=== PATIENT | male | born 1940 | race African-American/Black ===

== ENCOUNTER 2016-12-08 15:56 | Inpatient (IN) ==
[2016-12-08] MEDS ORDERED: SODIUM CHLORIDE 0.9% 500 ML IV STA (16:45)
--- NOTE | 2016-12-08 16:53 | Emergency Department Note ---
Linda Marshall Kasabria, am scribing for, and in the presence of, Sal Talbot MD 16:51. Antione Marshall Charles R, MD, personally performed the services described in this documentation, ascribed by Li Mckeon in my presence, and it is both accurate and complete [id number] . Arrival - Arrival Chief Complaint: Shortness of Breath ED Nursing Triage Note: c/o cough, sob when walking and abnormal gait for a few days. pt is pale Mode of Arrival: Stretcher Limitations: No Limitations Source: Patient Time Seen by Provider: 12/08/16 16:14 - History of Present Illness HPI Narrative: This is a 76 y/o black male presenting to the ED with c/o SOB that is now resolved. He states earlier today he could not walk. He denies MARTINEZ, vision change , chest pain, nausea, vomiting, diarrhea, abdominal pain, back pain, and dysuria. He states he has had melena stools. His PMHx is consistent with MS with stent placement and cerebrovasular accident. 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 Pt is a former smoker. Consistency: constant Severity: moderate Allergies/Adverse Reactions: Allergies Allergy/AdvReac Type Severity Reaction Status Date / Time No Known Allergies Allergy Unverified 12/30/14 16:27 Home Medications: Home Medications Medication Instructions Recorded Confirmed Type Atorvastatin [Lipitor] 20 mg PO BEDTIME #30 tablet 12/30/14 Rx Atorvastatin [Lipitor] 20 mg PO DAILY 12/30/14 12/30/14 History Clopidogrel [Plavix] 75 mg PO DAILY 12/30/14 12/30/14 History Clopidogrel [Plavix] 75 mg PO DAILY #30 tablet 12/30/14 Rx Review of System - Review of System 12 point system: reviewed and no additional remarkable complaints except as stated - Review of System Constitutional: Absent: chills, fever, weakness Eyes: Absent: vision change Head/Ears/Nose/Throat: Absent: nasal drainage Respiratory: Absent: cough, wheezing Cardiovascular: Present: dyspnea on exertion. Absent: chest pain Gastrointestinal: Present: melena. Absent: abdominal pain, nausea, vomiting, diarrhea Genitourinary male: Absent: dysuria Musculoskeletal: Absent: arm pain, back pain, leg pain, neck pain Skin: Absent: rash Neurological: Absent: headache, weakness, numbness, confusion, vertigo Psychiatric: Absent: anxiety Endocrine: Absent: fatigue Hematological/Lymphatic: Absent: easy bleeding Allergic/Immunologic: Absent: facial swelling Medical,Surgical,& Family Hx - Medical History Cardio: History of: MS (2004) Neurology: History of: Cerebrovascular Accident - Surgical History Cardiac Surgeries: Sugical HX of: Cardiac Catheterization (stent 2004) - Social History Smoking Status: Smoker, status unknown Frequency of Alcohol Use: None Type of Drug Use: None Exam Vital Signs: Vital Signs Temperature 97.0 F L 12/08/16 16:02 Pulse Rate 89 12/08/16 17:35 Respiratory Rate 14 12/08/16 17:35 Blood Pressure 115/80 12/08/16 17:35 O2 Sat by Pulse Oximetry 98 12/08/16 17:35 - General General appearance: alert, in no apparent distress - Head Head exam: Present: atraumatic, normocephalic, normal inspection - Eye Eye exam: Present: PERRL, EOMI. Absent: normal appearance (pale sclera ) - ENT ENT exam: Present: normal exam, normal oropharynx, mucous membranes moist, TM's normal bilaterally, normal external ear exam - Neck Neck exam: Present: normal inspection, full ROM, trachea midline. Absent: tenderness - Chest Chest inspection: Present: normal inspection, symmetric chest wall rise. Absent : tenderness - Respiratory Respiratory exam: Present: rhonchi (bilateral ). Absent: normal lung sounds bilaterally - Cardiovascular Cardiovascular exam: Present: normal rhythm, tachycardia, normal heart sounds. Absent: regular rate - Abdominal Exam Abdominal exam: Present: soft, normal bowel sounds. Absent: distention, tenderness - Rectal Exam Rectal exam: Present: heme (+) stool. Absent: normal inspection - Extremities Exam Extremities exam: Present: normal inspection, full ROM, normal capillary refill. Absent: tenderness, pedal edema, calf tenderness - Back Exam Back exam: Present: normal inspection, full ROM. Absent: tenderness - Neurological Exam Neurological exam: Present: alert, oriented X3, CN II-XII intact, normal gait, reflexes normal - Psychiatric Psychiatric exam: Present: normal affect, normal mood - Skin Skin exam: Present: warm, dry, intact, normal color, other (clubbing to nail bilaterally with pale nailbeds ). Absent: diaphoresis Course - Consultations Consultation #1: Hospitalist will admit patient Time: 17:49 Results - Labs CBC & BMP: 12/08/16 17:02 12/08/16 17:02 Lab Results: I have reviewed the patients labs Critical Care Time Critical Care Time: Yes Total Critical Care Time: 60 Disposition Clinical Impression: COPD (chronic obstructive pulmonary disease), Acute blood loss anemia, Lower GI bleed, Syncope and collapse, Exertional dyspnea Case discussed with: patient, patient's family Disposition: Still a Patient Condition: Guarded Time of Disposition: 17:50
--- NOTE | 2016-12-08 17:19 | EKG Report ---
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
[2016-12-08 17:28] LABS: Eosinophils # 0.1 10*3/uL (0.0-0.87); Eosinophils % 0.5 % (0.00-10.9); Hematocrit 18.4 VOL% (42.0-52.0); Immature Granulocytes % 0.5 %; Immature Granulocytes Absolute 0.05 #; Lymphocytes # 1.2 10*3/uL (1.4-4.0); Mean Corpuscular HGB Conc 27.7 GM/DL (32-36); Mean Corpuscular Hemoglobin 17 PG (27-34); Mean Corpuscular Volume 59.4 FL (87-102); Mean Platelet Volume 10.7 FL (9.6-12.0); Monocytes # 0.7 10*3/uL (0.11-0.8); Monocytes % 6.1 % (1.7-12.7); Neutrophils % 81.9 % (38.7-73.9); Platelet Count 257 T/CUMM (130-400); Red Cell Distribution Width 22.2 % (9.3-17.3)
[2016-12-08 17:32] LABS: Hemoglobin 5.1 GM/DL (14.0-18.0)
--- NOTE | 2016-12-08 17:35 | XRay Report ---
XR chest 1V portable Indication: Shortness of breath Comparison: 30 December 2014 Findings: The heart and mediastinum are normal in size and configuration. The pulmonary vascularity is normal in caliber. Lung volumes are increased with prominent bronchial markings. No lung infiltrates, effusions, pneumothorax or other abnormality is demonstrated. Impression: Chronic lung changes. No acute process or significant change. PROCEDURE INTERPRETED AT [facility] DEPARTMENT OF RADIOLOGY Final Report Signed by: Dr. Jaime Singh
[2016-12-08 17:41] LABS: INR 1.3; PT Patient Result 13.9 SECS
[2016-12-08 17:47] LABS: Apearance,Urine CLEAR (Clear); Bilirubin,Urine Negative (Negative); Blood, Urine Negative (Negative); Glucose,Urine (UA) Negative (Negative); Ketones,Urine Negative (Negative); Mucus,Urine Occasional /LPF (Occasional); Nitrite,Urine Negative (Negative); Protein,Urine Negative; RBC,Urine <1 /HPF (0-4); Urine Color Yellow (Yellow); Urine Specific Gravity 1.008 (1.001-1.035); Urine Urobilinogen < 2.0 EU/DL (0.2-1.0); WBC,Urine 1 /HPF (0-6)
[2016-12-08 17:51] LABS: Alanine Aminotransferase < 9 U/L (16-61); Albumin 2.9 G/DL (3.4-5.0); Alkaline Phosphatase 65 U/L (45-117); Aspartate Amino Transferase 11 U/L (0-37); Blood Urea Nitrogen 13 MG/DL (7-18); Calcium 8.3 MG/DL (8.5-10.1); Glucose 103 MG/DL (74-106); Magnesium 2.2 MG/DL (1.8-2.4); Osmolality,Calculated 272.8 MOS/KG (273-304); Potassium 3.5 MMOL/L (3.5-5.1); Sodium 137 MMOL/L (136-145)
[2016-12-08 17:52] LABS: Troponin I Only 0.099 NG/ML (0.00-0.045)
[2016-12-08 17:53] LABS: Barbiturates Screen,Urine Negative (Negative); Benzodiazepines Screen,Urine Negative (Negative); Cannabinoid Screen,Urine Negative (Negative); Opiate Screen,Urine Negative (Negative); Phencyclidine Screen,Urine Negative (Negative)
--- NOTE | 2016-12-08 18:44 | Hospitalist History & Physical ---
<Alfred Jang - Last Filed: 12/08/16 18:45> Assessment and Plan (1) Acute blood loss anemia Status: Acute Assessment and plan: H/H noted at 5.1/18.4; we will type and screen and transfuse. We willl recheck in AM. Current Visit: Yes (2) COPD (chronic obstructive pulmonary disease) Status: Acute Current Visit: Yes (3) Exertional dyspnea Status: Acute Assessment and plan: I suspect that this is related to his anemia; we will provide oxygen support and replace loss volume. Current Visit: Yes History of Present Illness History of present illness: This is very pleasant 76 year old male that presented to the ED this afternoon for the evaluation of shortness of breath. The patient has a medical history of hypertension, cerebral vascular accident, and myocardial infarction with stent placement. At the time of ED presentation, the patient reported that his shortness of breath had resolved; however he reported bloody stools today. At the time of ED presentation, labs were obtained. The patient was noted to be grossly anemic with a hemoglobin of 5.1 and hematocrit of 18.4. INR was noted at 1.3, calcium at 8.3, and troponin at 0.099. Chest radiograph was essentially unremarkable. After brief discussion with both Dr. Talbot and Dr. Templeton, the patient will be admitted to the hospitalist service to critical care. Home Medications Medication Instructions Recorded Confirmed Type Atorvastatin [Lipitor] 20 mg PO BEDTIME #30 tablet 12/30/14 12/08/16 Rx Clopidogrel [Plavix] 75 mg PO DAILY #30 tablet 12/30/14 12/08/16 Rx Albuterol Inhaler [Proventil 2 puff INH Q6H PRN 12/08/16 12/08/16 History Inhaler] Captopril 6.25 mg PO BID 12/08/16 12/08/16 History Carvedilol 0.5 tablet PO BID 12/08/16 12/08/16 History Allergies Allergy/AdvReac Type Severity Reaction Status Date / Time No Known Allergies Allergy Unverified 12/30/14 16:27 Medical,Surgical,& Family Hx - Medical History Cardio: History of: [place] (2004) Neurology: History of: Cerebrovascular Accident - Surgical History Cardiac Surgeries: Sugical HX of: Cardiac Catheterization (stent 2004) - Social History Smoking Status: Smoker, status unknown Frequency of Alcohol Use: None Type of Drug Use: None 12 point system: reviewed and no additional remarkable complaints except as stated Exam - Constitutional Vitals: Period Temp Pulse Resp BP Sys/Ibrahim Pulse Ox Last 24 Hr 97 F-97.0 F 88-91 14-23 115-126/62-86 98-100 General appearance: normal weight, no acute distress - Head Head exam: Present: normal inspection, normocephalic, atraumatic - Eye Eye exam: Present: EOMI, conjunctival injection Pupils: Present: LIBRADO, normal accommodation - ENT ENT exam: Present: normal exam, normal external ear exam, normal oropharynx - Neck Neck exam: Present: normal inspection. Absent: lymphadenopathy, meningismus, tenderness, thyromegaly - Respiratory Respiratory exam: Present: clear to auscultation bilaterally. Absent: rales, rhonchi, stridor, wheezes - Cardiovascular Cardiovascular exam: Present: bradycardia, regular rate and rhythm. Absent: carotid bruit, diastolic murmur, gallop, JVD, rubs, systolic murmur - GI/Abdominal GI/Abdominal exam: Present: normal bowel sounds, soft, other (melena ) - Extremities Exam Extremities exam: Present: normal inspection, normal capillary refill, full ROM , edema. Absent: calf tenderness - Back Exam Back exam: Present: normal inspection - Neurological Exam Neurological exam: Present: alert, oriented X3, CN II-XII intact - Psychiatric Psychiatric exam: Present: normal affect, normal mood - Skin Skin exam: Present: normal color, warm, dry Results - Labs CBC & BMP: 12/08/16 17:02 12/08/16 17:02 Lab Results: I have reviewed the past 24 hour labs <Amanda Danielson - Last Filed: 12/08/16 20:35> History of Present Illness History of present illness: Mr. Salomon is a 76 year old male with multiple medical issues who is on admission for symptomatic anemia.He denies any GI bleed or bleeding from any orifices. No known history of Colonoscopy or EGD in the past.His troponin was elevated and Hb was 5.1 Plan Liquid diet Transfuse with 2units of packed cells GI consult Cardiac enzymes Consider Cardiology consult PPI stool for occult blood Echo Exam - Constitutional Vitals: Period Temp Pulse Resp BP Sys/Ibrahim Pulse Ox Last 24 Hr 90 17 128/66 98 Results - Labs CBC & BMP: 12/08/16 17:02 12/08/16 17:02
[2016-12-08] MEDS ORDERED: SODIUM CHLORIDE 0.45% 1,000 ML IV SCH (20:55)
[2016-12-08] MEDS ORDERED: SODIUM CHLORIDE 0.9% 250 ML IV PRN (20:55)
[2016-12-08] MEDS: CARVEDILOL 6.25 MG TABLET PO SCH (21:35)
[2016-12-08] MEDS: ATORVASTATIN 20 MG TABLET PO SCH (21:35)
[2016-12-08 22:21] LABS: Ferritin 12.9 ng/ml (26-388)
[2016-12-08 22:28] LABS: % Iron Saturation 2.5 % (18-50); Iron 8 UG/DL (65-175); Iron Binding Capacity 325 UG/DL (250-450); Troponin I Only 0.069 NG/ML (0.00-0.045)
[2016-12-08] MEDS: ALBUTEROL 2.5 MG/3 ML NEB RESP TX PRN (23:11)
[2016-12-09] MEDS ORDERED: FUROSEMIDE 20 MG/2 ML VIAL IV ONE (03:52)
[2016-12-09 05:24] LABS: Apearance,Urine CLEAR (Clear); Bilirubin,Urine Negative (Negative); Blood, Urine Negative (Negative); Glucose,Urine (UA) Negative (Negative); Ketones,Urine Negative (Negative); Mucus,Urine Occasional /LPF (Occasional); Nitrite,Urine Negative (Negative); Protein,Urine Negative; RBC,Urine <1 /HPF (0-4); Squamous Epithelial Cell,Urine Occasional /HPF (0-10); Urine Color Yellow (Yellow); Urine Specific Gravity 1.021 (1.001-1.035); WBC,Urine 1 /HPF (0-6)
[2016-12-09 06:07] LABS: Basophils % 0.1 % (0.0-0.8); Eosinophils # 0.1 10*3/uL (0.0-0.87); Eosinophils % 0.5 % (0.00-10.9); Hematocrit 28.9 VOL% (42.0-52.0); Immature Granulocytes Absolute 0.15 #; Lymphocytes # 0.7 10*3/uL (1.4-4.0); Lymphocytes % 4.8 % (21.2-54.2); Mean Corpuscular HGB Conc 29.8 GM/DL (32-36); Mean Corpuscular Hemoglobin 20 PG (27-34); Mean Corpuscular Volume 66.3 FL (87-102); Monocytes # 0.5 10*3/uL (0.11-0.8); Neutrophils # 13.8 10*3/uL (1.4-7.4); Neutrophils % 90.6 % (38.7-73.9); Platelet Count 240 T/CUMM (130-400); Red Cell Distribution Width 26.7 % (9.3-17.3)
[2016-12-09 06:09] LABS: Red Blood Count 4.36 MC/CUMM (3.8-5.5); White Blood Count 15.2 T/CUMM (4-12)
[2016-12-09 06:10] LABS: Hemoglobin 8.6 GM/DL (14.0-18.0)
[2016-12-09 06:33] LABS: Hypochromasia 1+; Lymphocytes 2 % (20-55); Ovalocytes Slight; Platelet Estimate Adequate; Segmented Neutrophils 97 % (50-85); Total Cells Counted 100
[2016-12-09 06:34] LABS: Microcytosis Slight
[2016-12-09 06:38] LABS: Alanine Aminotransferase 17 U/L (16-61); Albumin 2.8 G/DL (3.4-5.0); Alkaline Phosphatase 81 U/L (45-117); Aspartate Amino Transferase 26 U/L (0-37); Blood Urea Nitrogen 12 MG/DL (7-18); Calcium 7.9 MG/DL (8.5-10.1); Cholesterol 140 MG/DL (50-200); Glucose 94 MG/DL (74-106); HDL Cholesterol 77 MG/DL (40-60); Osmolality,Calculated 272.8 MOS/KG (273-304); Risk Ratio 1.82; Sodium 137 MMOL/L (136-145); Total Protein 6.9 G/DL (6.4-8.3); Triglycerides 82 MG/DL (2-150); VLDL CHOLESTEROL 16.4 MG/DL
[2016-12-09 06:40] LABS: Troponin I Only 0.058 NG/ML (0.00-0.045)
[2016-12-09] MEDS: CARVEDILOL 6.25 MG TABLET PO SCH ×2 (08:03→21:16)
[2016-12-09] MEDS: ACETAMINOPHEN 325 MG TABLET PO PRN ×2 (08:03→16:36)
--- NOTE | 2016-12-09 08:26 | Hospitalist Progress Note ---
Assessment and Plan (1) Acute blood loss anemia Status: Acute Assessment and plan: Assumably lower GI bleed. Consult GI. Hemoglobin improved with transfusion of 2 units of packed red blood cells. The patient was admitted with symptomatic anemia with a hemoglobin of 5. Current Visit: Yes (2) COPD (chronic obstructive pulmonary disease) Status: Chronic Current Visit: Yes (3) Lower GI bleed Status: Acute Current Visit: Yes Hospitalist: Subjective Interval history: Patient seen and examined. He became more short of breath last night after receiving 2 units of packed red blood cells. He received 20 mg of IV Lasix and feels better now. O2 sats 99%. Case discussed with nursing staff. Labs reviewed. Exam - Constitutional Vitals: Period Temp Pulse Resp BP Sys/Ibrahim Pulse Ox Last 24 Hr 98.4 F-101.8 F 82-110 12-25 88-152/59-91 93-100 Exam: Constitutional System: No distress. No tremulousness. Thin and frail-appearing Head: Normocephalic, atraumatic. Ears, Nose and Throat System: No pain or tenderness. No epistaxis or discharge Eyes System: Pupils equal, round, and reactive. Extraocular muscles intact. Neck: Supple, without adenopathy, No jugular venous distention. No thyromegaly, neck mass, or prior surgery apparent. Respiratory System: Chest clear to auscultation. Cardiovascular System: Heart with regular rate and rhythm. No murmur. GI System: Abdomen soft, nontender. Normo active bowel sounds present. Musculoskeletal System: limbs with no pedal edema. Full distal pulses. Neurological System: No discernable sensory deficit. No aphasia Psychiatric System: Conversation is rational Results - Labs CBC & BMP: 12/09/16 05:39 12/09/16 05:39 Lab Results: I have reviewed the past 24 hour labs Quality Measures - VTE Contraindication to Pharmacological VTE Prophylaxis: High Risk of Bleeding
[2016-12-09] MEDS ORDERED: PANTOPRAZOLE 40 MG VIAL IV SCH (09:00)
--- NOTE | 2016-12-09 09:21 | Cardiology Consult Note ---
<Laura Waldrop - Last Filed: 12/09/16 09:04> Assessment and Plan - Time spent with patient Time spent with patient: Greater than 30 minutes (1) Acute blood loss anemia Status: Chronic Assessment and plan: See plan of care listed below. Current Visit: Yes (2) COPD (chronic obstructive pulmonary disease) Status: Chronic Assessment and plan: See plan of care listed below. Current Visit: Yes (3) Hypertension Status: Chronic Assessment and plan: See plan of care listed below. Current Visit: Yes (4) Hyperlipidemia Status: Chronic Assessment and plan: See plan of care listed below. Current Visit: Yes (5) Coronary artery disease Status: Chronic Assessment and plan: See plan of care listed below. Current Visit: Yes (6) Former smoker Status: Chronic Assessment and plan: See plan of care listed below. Current Visit: Yes (7) Ischemic cardiomyopathy Status: Chronic Assessment and plan: See plan of care listed below. Current Visit: Yes History of Present Illness - Data of Consult Patient: known to practice within the last 3 years Consult date: 12/09/16 Requesting Physician: Amanda Danielson - Consult Narrative Reason for consult: Elevated troponin, history of CAD History of present illness: Automobile Brake Bonder: Dr. Samano Mr. Salomon is a 76 year old male with known history of coronary artery disease , routinely followed by Dr. Samano. She presented to the emergency department yesterday evening with complaints of shortness of breath 3 weeks. His current receptor significant for known history of coronary artery disease, hypertension, hyperlipidemia, former smoker (reports that he quit in 2004), advanced age and sedentary lifestyle. Patient has a past medical history of CVA , myocardial infarction (status post stent to RCA in 2004, COPD and ischemic cardiomyopathy) echo in 2014 revealed ejection fraction of 40-50%). Patient underwent left heart catheterization per Dr. Samano in 2004. At that time he received stent to RCA. At that time, his overall ejection fraction was noted to be 45%. Patient last saw Dr. Samano in the cardiology clinic December 2015. He reports that he missed his appointment last week due to finances. Patient presented to [facility] yesterday evening with complaints of shortness of breath 3 weeks. He denies experiencing chest pain, heaviness or tightness. Denies fever, chills, cough, heart palpitations/racing , nausea, vomiting, and lower extremity swelling. Upon arrival to emergency department he was severely anemic with H&H of 5.1 and 18.4. Subsequently, he was transfused with 2 units of packed red blood cells. This morning, H&H is slightly better at 8.6 and 28.9. After receiving 2 units of packed red blood cells, he became increasingly short of breath. BNP was noted to be 455. After receiving Lasix IV his dyspnea resolved. Chest x-ray did not reveal any acute cardiopulmonary process. Patient denies having any bright red blood per rectum. GI has been consulted to evaluate patient's anemia this morning. Plavix was held at admission as the patient's coronary stent was placed well over one year ago. Troponin was noted to be mildly elevated at 0.099, 0.069 and 0.058. Patient has been without anginal symptoms. EKG is unchanged. I suspect that patient's rise in troponin is secondary to patient's severe anemia. GI workup is underway. Echocardiogram was ordered per hospital medicine, results reviewed reviewed. Assessment/plan: 1. ELEVATED TROPONIN -Patient has been without anginal symptoms. EKG is unchanged. I suspect that patient's mildly elevated troponin is secondary to his severe anemia. 2. CAD -This appears to be clinically stable at present. Patient is without anginal symptoms. Will continue patient's beta-ky and lipid-lowering agent. At this point, antiplatelet's have been discontinued due to patient's profound anemia. Will consider reinitiating aspirin at a later date, once his anemia improves. 3. ANEMIA -Plavix was held at admission as patient's coronary stent was placed well over one year ago. Patient was transfused with 2 units of packed red blood cells yesterday evening. H&H has improved, today 8.6 and 28.9. GI has been consulted to evaluate patient today. 4. ISCHEMIC CARDIOMYOPATHY -Patient's last echocardiogram, September 2014 reveals ejection fraction of 40-50%. Echocardiogram has been ordered per hospital medicine, results will be reviewed. Continue beta-ky. I will also add low -dose HYUN inhibitor, increase as blood pressure will tolerate. 5. HYPERTENSION -This is clinically stable. Low dose HYUN inhibitor has been initiated as patient has history of ischemic cardiomyopathy. Will increase as patient's blood pressure will tolerate. 6. HYPERLIPIDEMIA -Continue current plan of care with lipid lowering agent. Lipid panel has been reviewed, unremarkable. 7. COPD -Management per attending. 8. FORMER SMOKER - Patient reports that he quit smoking in 2004. -Further plan and addendum to follow per Dr. Kam. CC: Tracey Rosales MD - Home Medications and Allergies Home Medications: Home Medications Medication Instructions Recorded Confirmed Type Atorvastatin [Lipitor] 20 mg PO BEDTIME #30 tablet 12/30/14 12/08/16 Rx Clopidogrel [Plavix] 75 mg PO DAILY #30 tablet 12/30/14 12/08/16 Rx Albuterol Inhaler [Proventil 2 puff INH Q6H PRN 12/08/16 12/08/16 History Inhaler] Captopril 6.25 mg PO BID 12/08/16 12/08/16 History Carvedilol 0.5 tablet PO BID 12/08/16 12/08/16 History Allergies/Adverse Reactions: Allergies Allergy/AdvReac Type Severity Reaction Status Date / Time No Known Allergies Allergy Unverified 12/30/14 16:27 - Constitutional Constitutional: Present: malaise, weakness, weight loss. Absent: chills, fatigue, fever(s) - Cardiovascular Cardiovascular: Present: dyspnea, dyspnea on exertion, lightheadedness, orthopnea. Absent: chest pain at rest, chest pain with activity, claudication, diaphoresis, edema, radiating jaw, neck or arm pain, palpitations - Respiratory Respiratory: Absent: cough - Gastrointestinal Gastrointestinal: Present: abdominal pain, change in bowel habits, heartburn, melena. Absent: coffee ground emesis, hematemesis, hematochezia, nausea, vomiting - Neurological Neurological: Present: dizziness. Absent: abnormal speech, behavioral changes, syncope Medical,Surgical,& Family Hx - Medical History Cardio: History of: CAD, Hypertension, [place] (2004), Cardiovascular Problems ( Ischemic cardiomyopathy with ejection fraction 45-50%.) Neurology: History of: Cerebrovascular Accident Endocrine: History of: Dyslipidemia Respiratory: History of: COPD - Surgical History Cardiac Surgeries: Sugical HX of: Cardiac Catheterization (stent 2004) Abdominal Surgeries: Patient denies: Abdominal Surgery Reproductive Surgeries: Patient denies;: Genitourinary Surgery - Family History Family History: Reports;: Family Diabetes (mother) Denies;: Family Heart Disease - Social History Smoking Status: Former smoker Frequency of Alcohol Use: None Type of Drug Use: None Physical Examination Vital Signs Temp Pulse Resp BP Pulse Ox 97.0 F L 90 18 120/65 99 12/08/16 16:02 12/08/16 16:02 12/08/16 16:02 12/08/16 16:02 12/08/16 16:02 Other: General: Appears well with no apparent distress, thin and frail. Pleasant and cooperative. Appears comfortable. HEENT: PERRL, normocephalic, atraumatic. Mucous membranes moist. No jaundice noted. Conjunctiva moist and clear, sclerae anicteric Neck: No JVD/HJR, no thyromegaly or lymphadenopathy noted. Cardiac: Regular rate and rhythm. No murmur rub or gallop. Lungs: Clear to auscultation without accessory muscle use to assist the respiratory pattern. Requiring oxygen at 2 L via nasal cannula. Abdomen: Soft, bowel sounds normoactive. Nontender and nondistended. Extremities: No clubbing, cyanosis noted. No edema noted. Upper extremity pulses 2+. Lower extremity pulses 2+. Capillary refill less than 3 seconds. Skin: No unusual lesions or rashes. No skin breakdown appreciated. Neuro: Awake, alert and oriented 3. Moves all extremities well without hemiparesis or paralysis. No essential tremor is appreciated. Result/EKG - Labs CBC & BMP: 12/09/16 05:39 12/09/16 05:39 Lab Results: I have reviewed the past 24 hour labs Labs: Laboratory Results - last 24 hr 12/08/16 12/08/16 12/08/16 20:55 21:34 21:42 WBC RBC Hgb Hct MCV MCH MCHC RDW Plt Count Neut % (Auto) Lymph % (Auto) [place] % (Auto) Eos % (Auto) Baso % (Auto) Neut # (Auto) Lymph # (Auto) [place] # (Auto) Eos # (Auto) Baso # (Auto) Total Counted Immature Gran % Nucleated RBC % Immature Gran # Segmented Neutrophils Lymphocytes Monocytes Nucleated RBCs # Platelet Estimate Hypochromasia Microcytosis Ovalocytes Morphology Comment Sodium Potassium Chloride Carbon Dioxide Anion Gap BUN Creatinine GFR Calculation BUN/Creatinine Ratio Glucose Calculated Osmolality Calcium Iron 9 L TIBC % Saturation Ferritin 12.9 L Total Bilirubin AST ALT Alkaline Phosphatase Total Creatine Kinase CK-MB (CK-2) Troponin I Total Protein Albumin Globulin Albumin/Globulin Ratio Triglycerides Cholesterol LDL Cholesterol VLDL Cholesterol HDL Cholesterol Heart Disease Risk Ratio TSH 3rd Generation Urine Color Urine Appearance Urine pH Ur Specific [place] Urine Protein Urine Glucose (UA) Urine Ketones Urine Blood Urine Nitrate Urine Bilirubin Urine Urobilinogen Urine Leukocytes Urine RBC Urine WBC Ur Squamous Epith Cells Urine Mucus Ur Culture Indicated? Blood Type Cancelled AB POSITIVE Antibody Screen Cancelled Crossmatch See Detail Blood Bank Comment Cancelled 12/08/16 12/09/16 12/09/16 21:42 02:00 05:39 WBC 15.2 H D RBC 4.36 D Hgb 8.6 L D Hct 28.9 L MCV 66.3 L MCH 20 L MCHC 29.8 L RDW 26.7 H Plt Count 240 Neut % (Auto) 90.6 H Lymph % (Auto) 4.8 L [place] % (Auto) 3.0 Eos % (Auto) 0.5 Baso % (Auto) 0.1 Neut # (Auto) 13.8 H Lymph # (Auto) 0.7 L [place] # (Auto) 0.5 Eos # (Auto) 0.1 Baso # (Auto) 0.0 Total Counted 100 Immature Gran % 1.0 Nucleated RBC % 0.0 Immature Gran # 0.15 Segmented Neutrophils 97 H Lymphocytes 2 L Monocytes 1 L Nucleated RBCs # 0.00 Platelet Estimate Adequate Hypochromasia 1+ Microcytosis Slight Ovalocytes Slight Morphology Comment Sodium Potassium Chloride Carbon Dioxide Anion Gap BUN Creatinine GFR Calculation BUN/Creatinine Ratio Glucose Calculated Osmolality Calcium Iron 8 L TIBC 325 % Saturation 2.5 L Ferritin Total Bilirubin AST ALT Alkaline Phosphatase Total Creatine Kinase 148 CK-MB (CK-2) < 1.0 Troponin I 0.069 H D Total Protein Albumin Globulin Albumin/Globulin Ratio Triglycerides Cholesterol LDL Cholesterol VLDL Cholesterol HDL Cholesterol Heart Disease Risk Ratio TSH 3rd Generation 2.880 Urine Color Yellow Urine Appearance Clear Urine pH 5.0 Ur Specific [place] 1.021 Urine Protein Negative Urine Glucose (UA) Negative Urine Ketones Negative Urine Blood Negative Urine Nitrate Negative Urine Bilirubin Negative Urine Urobilinogen 4.0 H Urine Leukocytes Negative Urine RBC <1 Urine WBC 1 Ur Squamous Epith Cells Occasional Urine Mucus Occasional Ur Culture Indicated? Not indicated Blood Type Antibody Screen Crossmatch Blood Bank Comment 12/09/16 05:39 WBC RBC Hgb Hct MCV MCH MCHC RDW Plt Count Neut % (Auto) Lymph % (Auto) [place] % (Auto) Eos % (Auto) Baso % (Auto) Neut # (Auto) Lymph # (Auto) [place] # (Auto) Eos # (Auto) Baso # (Auto) Total Counted Immature Gran % Nucleated RBC % Immature Gran # Segmented Neutrophils Lymphocytes Monocytes Nucleated RBCs # Platelet Estimate Hypochromasia Microcytosis Ovalocytes Morphology Comment Sodium 137 Potassium 4.0 Chloride 104 Carbon Dioxide 22 Anion Gap 15.0 BUN 12 Creatinine 1.00 GFR Calculation 82 BUN/Creatinine Ratio 12.00 Glucose 94 Calculated Osmolality 272.8 L Calcium 7.9 L Iron TIBC % Saturation Ferritin Total Bilirubin 1.60 H AST 26 ALT 17 Alkaline Phosphatase 81 Total Creatine Kinase 199 D CK-MB (CK-2) < 1.0 Troponin I 0.058 H Total Protein 6.9 Albumin 2.8 L Globulin 4.1 H Albumin/Globulin Ratio 0.6 L Triglycerides 82 Cholesterol 140 LDL Cholesterol 60.0 VLDL Cholesterol 16.4 HDL Cholesterol 77 H Heart Disease Risk Ratio 1.82 TSH 3rd Generation Urine Color Urine Appearance Urine pH Ur Specific [place] Urine Protein Urine Glucose (UA) Urine Ketones Urine Blood Urine Nitrate Urine Bilirubin Urine Urobilinogen Urine Leukocytes Urine RBC Urine WBC Ur Squamous Epith Cells Urine Mucus Ur Culture Indicated? Blood Type Antibody Screen Crossmatch Blood Bank Comment Quality Measures - VTE Contraindication to Pharmacological VTE Prophylaxis: High Risk of Bleeding <Phil Kam - Last Filed: 12/09/16 10:35> History of Present Illness - Consult Narrative History of present illness: Mr. Salomon is a 76 year old male who presented with a marked anemia with severe iron deficiency which is improved to 28.9 posttransfusion. He appears stable and has had no significant cardiac complaints. He had been on Plavix and this has been discontinued and I think it safe to hold it at this point. His troponins are nondiagnostic and likely related to his anemia. CC: Tracey Rosales MD Physical Examination Vital Signs Temp Pulse Resp BP Pulse Ox 97.0 F L 90 18 120/65 99 12/08/16 16:02 12/08/16 16:02 12/08/16 16:02 12/08/16 16:02 12/08/16 16:02 Result/EKG - Labs CBC & BMP: 12/09/16 05:39 12/09/16 05:39 Labs: Laboratory Results - last 24 hr 12/08/16 12/08/16 12/08/16 20:55 21:34 21:42 WBC RBC Hgb Hct MCV MCH MCHC RDW Plt Count Neut % (Auto) Lymph % (Auto) [place] % (Auto) Eos % (Auto) Baso % (Auto) Neut # (Auto) Lymph # (Auto) [place] # (Auto) Eos # (Auto) Baso # (Auto) Total Counted Immature Gran % Nucleated RBC % Immature Gran # Segmented Neutrophils Lymphocytes Monocytes Nucleated RBCs # Platelet Estimate Hypochromasia Microcytosis Ovalocytes Morphology Comment Sodium Potassium Chloride Carbon Dioxide Anion Gap BUN Creatinine GFR Calculation BUN/Creatinine Ratio Glucose Calculated Osmolality Calcium Iron 9 L TIBC % Saturation Ferritin 12.9 L Total Bilirubin AST ALT Alkaline Phosphatase Total Creatine Kinase CK-MB (CK-2) Troponin I Total Protein Albumin Globulin Albumin/Globulin Ratio Triglycerides Cholesterol LDL Cholesterol VLDL Cholesterol HDL Cholesterol Heart Disease Risk Ratio TSH 3rd Generation Urine Color Urine Appearance Urine pH Ur Specific [place] Urine Protein Urine Glucose (UA) Urine Ketones Urine Blood Urine Nitrate Urine Bilirubin Urine Urobilinogen Urine Leukocytes Urine RBC Urine WBC Ur Squamous Epith Cells Urine Mucus Ur Culture Indicated? Blood Type Cancelled AB POSITIVE Antibody Screen Cancelled Crossmatch See Detail Blood Bank Comment Cancelled 12/08/16 12/09/16 12/09/16 21:42 02:00 05:39 WBC 15.2 H D RBC 4.36 D Hgb 8.6 L D Hct 28.9 L MCV 66.3 L MCH 20 L MCHC 29.8 L RDW 26.7 H Plt Count 240 Neut % (Auto) 90.6 H Lymph % (Auto) 4.8 L [place] % (Auto) 3.0 Eos % (Auto) 0.5 Baso % (Auto) 0.1 Neut # (Auto) 13.8 H Lymph # (Auto) 0.7 L [place] # (Auto) 0.5 Eos # (Auto) 0.1 Baso # (Auto) 0.0 Total Counted 100 Immature Gran % 1.0 Nucleated RBC % 0.0 Immature Gran # 0.15 Segmented Neutrophils 97 H Lymphocytes 2 L Monocytes 1 L Nucleated RBCs # 0.00 Platelet Estimate Adequate Hypochromasia 1+ Microcytosis Slight Ovalocytes Slight Morphology Comment Sodium Potassium Chloride Carbon Dioxide Anion Gap BUN Creatinine GFR Calculation BUN/Creatinine Ratio Glucose Calculated Osmolality Calcium Iron 8 L TIBC 325 % Saturation 2.5 L Ferritin Total Bilirubin AST ALT Alkaline Phosphatase Total Creatine Kinase 148 CK-MB (CK-2) < 1.0 Troponin I 0.069 H D Total Protein Albumin Globulin Albumin/Globulin Ratio Triglycerides Cholesterol LDL Cholesterol VLDL Cholesterol HDL Cholesterol Heart Disease Risk Ratio TSH 3rd Generation 2.880 Urine Color Yellow Urine Appearance Clear Urine pH 5.0 Ur Specific [place] 1.021 Urine Protein Negative Urine Glucose (UA) Negative Urine Ketones Negative Urine Blood Negative Urine Nitrate Negative Urine Bilirubin Negative Urine Urobilinogen 4.0 H Urine Leukocytes Negative Urine RBC <1 Urine WBC 1 Ur Squamous Epith Cells Occasional Urine Mucus Occasional Ur Culture Indicated? Not indicated Blood Type Antibody Screen [facility] Blood Bank Comment 12/09/16 05:39 WBC RBC Hgb Hct MCV MCH MCHC RDW Plt Count Neut % (Auto) Lymph % (Auto) [place] % (Auto) Eos % (Auto) Baso % (Auto) Neut # (Auto) Lymph # (Auto) [place] # (Auto) Eos # (Auto) Baso # (Auto) Total Counted Immature Gran % Nucleated RBC % Immature Gran # Segmented Neutrophils Lymphocytes Monocytes Nucleated RBCs # Platelet Estimate Hypochromasia Microcytosis Ovalocytes Morphology Comment Sodium 137 Potassium 4.0 Chloride 104 Carbon Dioxide 22 Anion Gap 15.0 BUN 12 Creatinine 1.00 GFR Calculation 82 BUN/Creatinine Ratio 12.00 Glucose 94 Calculated Osmolality 272.8 L Calcium 7.9 L Iron TIBC % Saturation Ferritin Total Bilirubin 1.60 H AST 26 ALT 17 Alkaline Phosphatase 81 Total Creatine Kinase 199 D CK-MB (CK-2) < 1.0 Troponin I 0.058 H Total Protein 6.9 Albumin 2.8 L Globulin 4.1 H Albumin/Globulin Ratio 0.6 L Triglycerides 82 Cholesterol 140 LDL Cholesterol 60.0 VLDL Cholesterol 16.4 HDL Cholesterol 77 H Heart Disease Risk Ratio 1.82 TSH 3rd Generation Urine Color Urine Appearance Urine pH Ur Specific [place] Urine Protein Urine Glucose (UA) Urine Ketones Urine Blood Urine Nitrate Urine Bilirubin Urine Urobilinogen Urine Leukocytes Urine RBC Urine WBC Ur Squamous Epith Cells Urine Mucus Ur Culture Indicated? Blood Type Antibody Screen Crossmatch Blood Bank Comment
[2016-12-09] MEDS: LISINOPRIL 2.5 MG TABLET PO SCH (09:27)
--- NOTE | 2016-12-09 11:37 | Gastrointestinal Consult Note ---
Assessment and Plan (1) Acute blood loss anemia Status: Chronic Assessment and plan: 12/09-Findings on admission of SOB and weakness with hgb 5.1, now 8.6 following 2 units PRBC. Last endoscopy in 2006. No GI complaints other than contradictory reports of melena/hematochezia on admission denied at this time by patient. Obtain stool studies and check serial HH. Plan for upper endoscopy when cleared from cardiac standpoint. Plan and addendum to follow by Dr Alejo. Current Visit: Yes History of Present Illness Chief complaint: Anemia History of present illness: Mr. Salomon is a 76 year old male who was admitted to the hospital with reports of SOB. Pt has a history of HTN, CVA, heart stents ([address] Samano) and [place]. He is a fair historian therefore information also obtained from chart review. Pt states that he had not felt well the last several days and was becoming more fatigued and short of breath. He was brought in via ambulance and on admission was found to have hemoglobin of 5.1. He states that he has no known history of anemia in the past and denies having blood transfusions before. He states he has not noted any melena or hematochezia as well. He denies any known weight loss. Denies any nausea, vomiting or abdominal pain. Pt states that he has no GERD, dysphagia and no known history of PUD. He is noted on admission to report having melena stools as well as bloody stools but he denies this to me during our interview. Iron studies were done and noted to have iron level at 8, saturation at 2.5, and ferritin level is 12.9. He is also noted to have mildly elevated troponin levels on admission with normal EKG and felt to be a noncardiac elevation secondary to his anemia. He has received 2 units of PRBC and hgb now 8.6. He has had a colonoscopy in [address] Alejo with findings of hemmorhoids. He then had a GI follow thru with no abnormal findings noted. He is on Plavix for history of CVA and heart stents which is currently being held. Home Medications Medication Instructions Recorded Confirmed Type Atorvastatin [Lipitor] 20 mg PO BEDTIME #30 tablet 12/30/14 12/08/16 Rx Clopidogrel [Plavix] 75 mg PO DAILY #30 tablet 12/30/14 12/08/16 Rx Albuterol Inhaler [Proventil 2 puff INH Q6H PRN 12/08/16 12/08/16 History Inhaler] Captopril 6.25 mg PO BID 12/08/16 12/08/16 History Carvedilol 0.5 tablet PO BID 12/08/16 12/08/16 History Allergies Allergy/AdvReac Type Severity Reaction Status Date / Time No Known Allergies Allergy Unverified 12/30/14 16:27 Medical,Surgical,& Family Hx - Medical History Cardio: History of: CAD, Hypertension, [place] (2004), Cardiovascular Problems ( Ischemic cardiomyopathy with ejection fraction 45-50%.) Neurology: History of: Cerebrovascular Accident Endocrine: History of: Dyslipidemia Respiratory: History of: COPD Hematology: History of: Anemia - Surgical History Cardiac Surgeries: Sugical HX of: Cardiac Catheterization (stent 2004) Abdominal Surgeries: Patient denies: Abdominal Surgery Reproductive Surgeries: Patient denies;: Genitourinary Surgery - Family History Family History: Reports;: Family Diabetes (mother) Denies;: Family Heart Disease - Social History Smoking Status: Former smoker Frequency of Alcohol Use: None Type of Drug Use: None 12 point system: reviewed and no additional remarkable complaints except as stated - Constitutional Constitutional: Present: as per HPI, weakness - EENT Eyes: Present: as per HPI Ears: Present: as per HPI Nose, mouth and throat: Present: as per HPI - Cardiovascular Cardiovascular: Present: as per HPI, dyspnea - Respiratory Respiratory: Present: as per HPI - Gastrointestinal Gastrointestinal: Present: as per HPI - Genitourinary Genitourinary: Present: as per HPI - Musculoskeletal Musculoskeletal: Present: as per HPI - Neurological Neurological: Present: as per HPI - Psychiatric Psychiatric: Present: as per HPI - Endocrine Endocrine: Present: as per HPI - Hematologic/Lymphatic Hematologic/Lymphatic: Present: as per HPI Exam - Constitutional Vitals: Period Temp Pulse Resp BP Sys/Ibrahim Pulse Ox Last 24 Hr 98.4 F-101.8 F 82-110 12-27 88-152/57-91 93-100 General appearance: normal weight, no acute distress - Head Head exam: Present: normal inspection, normocephalic - Eye Eye exam: Present: other (lids and conjuncitva unremarkable). Absent: scleral icterus - ENT ENT exam: Present: normal exam, normal oropharynx - Neck Neck exam: Present: normal inspection - Respiratory Respiratory exam: Present: clear to auscultation bilaterally. Absent: rales, rhonchi, wheezes - Cardiovascular Cardiovascular exam: Present: regular rate and rhythm. Absent: diastolic murmur , JVD, systolic murmur - GI/Abdominal GI/Abdominal exam: Present: normal bowel sounds, soft. Absent: ascites, distended, mass, organomegaly, tenderness - Extremities Exam Extremities exam: Present: normal inspection, full ROM - Back Exam Back exam: Present: normal inspection - Neurological Exam Neurological exam: Present: alert, oriented X3 - Psychiatric Psychiatric exam: Present: normal affect, normal mood - Skin Skin exam: Present: normal color, warm, dry Results - Labs CBC & BMP: 12/09/16 05:39 12/09/16 05:39 Lab Results: I have reviewed the past 24 hour labs Quality Measures - VTE Contraindication to Pharmacological VTE Prophylaxis: High Risk of Bleeding
[2016-12-09] MEDS ORDERED: PNEUMOCOCCAL VACCINE (13 VALENT) 0.5 ML SYRINGE IM ONE (17:00)
--- NOTE | 2016-12-09 18:03 | ECHO Report ---
Ruslan Salomon Exam Date: 12/09/2016 09:33 Referring Physician: Technologist: Brianne Singh Age: 76 Ht (in): 70 Wt (lb): 122 Gender: M Exam Location: [facility] Echo Indications: STARKS, COPD, acute blood loss, syncope BP: 149 / 84 HR: 110 Rhythm: Sinus Technical Quality: Fair IMPRESSIONS Mildly increased septal wall thickness. Moderately increased left ventricular cavity size. Left ventricular ejection fraction is estimated at 35-40 % related to diffuse moderate to severe left ventricular hypokinesis. Normal right ventricular size. Normal right atrial size. Normal left atrial size. Mildly thickened mitral valve with mild mitral regurgitation. Aortic valve sclerosis without stenosis. Mild aortic valve regurgitation. Morphologically normal tricuspid valve. Moderate tricuspid valve regurgitation. Tricuspid regurgitation velocities suggest a PAP of 30.9 mmHg + RAP. Pulmonic valve not well visualized. No pericardial effusion. Normal size aortic root and proximal ascending aorta. MEASUREMENTS (Male / Female) Normal Values 2D ECHO LV Diastolic Diameter PLAX 5.2 cm 4.2 - 5.9 / 3.9 - 5.3 cm LV Systolic Diameter PLAX 4.2 cm LV Fractional Shortening PLAX 20.1 % IVS Diastolic Thickness 1.1 cm 0.6 - 1.0 / 0.6 - 0.9 cm LVPW Diastolic Thickness 1.3 cm 0.6 - 1.0 / 0.6 - 0.9 cm RV Internal Dim ED PLAX 2.2 cm Aortic Root Diameter 3.0 cm LA Systolic Diameter LX 2.8 cm 3.0 - 4.0 / 2.7 - 3.8 cm DOPPLER TR Peak Velocity 278.0 cm/s TR Peak Gradient 30.9 mmHg FINDINGS Left Ventricle Mildly increased septal wall thickness. Moderately increased left ventricular cavity size. Left ventricular ejection fraction is estimated at 35-40 % related to diffuse moderate to severe left ventricular hypokinesis. Right Ventricle Normal right ventricular size. Right Atrium Normal right atrial size. Left Atrium Normal left atrial size. Mitral Valve Mildly thickened mitral valve with mild mitral regurgitation. Aortic Valve Aortic valve sclerosis without stenosis. Mild aortic valve regurgitation. Tricuspid Valve Morphologically normal tricuspid valve. Moderate tricuspid valve regurgitation. Tricuspid regurgitation velocities suggest a PAP of 30.9 mmHg + RAP. Pulmonic Valve Pulmonic valve not well visualized. Pericardium No pericardial effusion. Aorta Normal size aortic root and proximal ascending aorta. Phil Kam MD (Electronically Signed) Final Date: 09 Dec 2016 18:02
[2016-12-09] MEDS: ATORVASTATIN 20 MG TABLET PO SCH (21:18)
[2016-12-09] MEDS: cefTRIAXone 1,000 MG in SODIUM CHLORIDE 0.9% 100 ML IV SCH (21:19)
[2016-12-10 05:35] LABS: Basophils % 0.1 % (0.0-0.8); Eosinophils % 0.1 % (0.00-10.9); Hematocrit 26.6 VOL% (42.0-52.0); Hemoglobin 7.8 GM/DL (14.0-18.0); Immature Granulocytes % 1.5 %; Immature Granulocytes Absolute 0.23 #; Lymphocytes % 6.8 % (21.2-54.2); Mean Corpuscular HGB Conc 29.3 GM/DL (32-36); Mean Corpuscular Hemoglobin 19 PG (27-34); Mean Corpuscular Volume 66.2 FL (87-102); Mean Platelet Volume 10.5 FL (9.6-12.0); Monocytes # 0.7 10*3/uL (0.11-0.8); Monocytes % 4.3 % (1.7-12.7); Neutrophils # 13.3 10*3/uL (1.4-7.4); Neutrophils % 87.2 % (38.7-73.9); Platelet Count 227 T/CUMM (130-400); Red Blood Count 4.02 MC/CUMM (3.8-5.5); Red Cell Distribution Width 26.9 % (9.3-17.3); White Blood Count 15.2 T/CUMM (4-12)
[2016-12-10 05:55] LABS: Hypochromasia 1+; Microcytosis Slight; Ovalocytes Slight; Platelet Estimate Adequate
[2016-12-10 06:12] LABS: Magnesium 2.4 MG/DL (1.8-2.4); Osmolality,Calculated 276.7 MOS/KG (273-304)
--- NOTE | 2016-12-10 06:57 | XRay Report ---
Exam: XR chest 1V portable Date: 12/10/2016 4:00 AM Indication: Shortness of breath Comparison: 12/08/2016 Technical: AP portal Findings: External cardiac leads are present. Mild COPD with hyperinflation present. Mild interstitial thickening in the lung de bilaterally. Small nodes in the left perihilar region. Bony structures reveal lateral marginal osteophytes. No pneumothorax. Impression: 1. COPD with hyperinflation without acute infiltrate with mild scarring in the perihilar regions and granular changes PROCEDURE INTERPRETED AT [facility] DEPARTMENT OF RADIOLOGY Final Report Signed by: Dr. Nino Moncada
[2016-12-10] MEDS: LISINOPRIL 2.5 MG TABLET PO SCH (08:33)
[2016-12-10] MEDS: CARVEDILOL 6.25 MG TABLET PO SCH ×2 (08:33→20:13)
[2016-12-10] MEDS: PANTOPRAZOLE 40 MG TABLET PO SCH (08:33)
--- NOTE | 2016-12-10 08:38 | Cardiology Progress Note ---
Assessment and Plan (1) Acute blood loss anemia Status: Chronic Assessment and plan: See plan of care listed below. Current Visit: Yes (2) COPD (chronic obstructive pulmonary disease) Status: Chronic Assessment and plan: See plan of care listed below. Current Visit: Yes (3) Hypertension Status: Chronic Assessment and plan: See plan of care listed below. Current Visit: Yes (4) Hyperlipidemia Status: Chronic Assessment and plan: See plan of care listed below. Current Visit: Yes (5) Coronary artery disease Status: Chronic Assessment and plan: See plan of care listed below. Current Visit: Yes (6) Former smoker Status: Chronic Assessment and plan: See plan of care listed below. Current Visit: Yes (7) Ischemic cardiomyopathy Status: Chronic Assessment and plan: See plan of care listed below. Current Visit: Yes Cardiology - PN: Subj Interval history: Igniter Capper: Dr. Samano SUMMARY : Mr. Salomon is a 76 year old male with known history of coronary artery disease, routinely followed by Dr. Samano. PMH includes: known history of coronary artery disease, hypertension, hyperlipidemia, former smoker (reports that he quit in 2004), CVA, myocardial infarction (status post stent to RCA in 2004), COPD and ischemic cardiomyopathy (echo in 2014 revealed ejection fraction of 40-50%). Patient underwent left heart catheterization per Dr. Samano in 2004. At that time he received stent to RCA. At that time, his overall ejection fraction was noted to be 45%. Patient last saw Dr. Samano in the cardiology clinic December 2015. He reports that he missed his appointment last week due to inadequate finances. Patient presented to [facility] with complaints of shortness of breath and weakness 3 weeks. Upon arrival to emergency department, he was severely anemic with H&H of 5.1 and 18.4. Subsequently, he was transfused with 2 units of packed red blood cells. Posttransfusion, his H&H improved to 8.6 and 28.9. After receiving 2 units of packed red blood cells, he became increasingly short of breath. BNP was noted to be 455. After receiving Lasix IV his dyspnea resolved. Chest x-ray did not reveal any acute cardiopulmonary processes. Echocardiogram revealed left ventricular ejection fraction of 35-40% related to diffuse moderate to severe left ventricular hypokinesis. Moderate TR and mild MR noted. Patient denies having any bright red blood per rectum. GI has been consulted. Plavix was held at admission as the patient's coronary stent was placed well over one year ago. Troponin was noted to be mildly elevated at 0.099, 0.069 and 0.058, most likely due to patient's profound anemia. Patient has been without anginal symptoms and has no specific cardiac complaints. EKG is unchanged. GI workup is underway, plan for EGD next week. December 10 Update: Patient was seen and examined in the ICU. He is awake and alert and able to answer all questions appropriately. He denies chest pain, heaviness and tightness and has no specific cardiac complaints. He reports that his breathing has improved. H&H this morning is 7.8 and 26.6. No overt bleeding noted. Plavix was discontinued at admission and I think it is safe to hold it at this point as patient's stent was placed in 2004. Vital signs are stable. GI plans for EGD next week. Assessment/plan: 1. ELEVATED TROPONIN -Patient has been without anginal symptoms. EKG is unchanged. I suspect that patient's mildly elevated troponin is secondary to his profound anemia. 2. CAD -This appears to be clinically stable at present. Patient is without anginal symptoms. Will continue patient's beta-ky and lipid-lowering agent. At this point, antiplatelet's have been discontinued due to patient's profound anemia. Will consider reinitiating aspirin at a later date, once his anemia improves. 3. ANEMIA -Plavix was held at admission as patient's coronary stent was placed well over one year ago. Patient was transfused with 2 units of packed red blood cells yesterday evening. H&H today is 7.8 and 26.6. GI has been consulted and plans for EGD next week. 4. ISCHEMIC CARDIOMYOPATHY - Echocardiogram yesterday revealed left ventricular ejection fraction of 35-40%. Continue beta-ky and HYUN inhibitor. 5. HYPERTENSION -This is clinically stable. Low dose HYUN inhibitor was initiated yesterday as patient has history of ischemic cardiomyopathy. Will increase as patient's blood pressure will tolerate. 6. HYPERLIPIDEMIA -Continue current plan of care with lipid lowering agent. Lipid panel has been reviewed, unremarkable. 7. COPD -Management per attending. 8. FORMER SMOKER - Patient reports that he quit smoking in 2004. -Further plan and addendum to follow per Dr. Kam. Exam (Progress Note) - Constitutional Vitals: Period Temp Pulse Resp BP Sys/Ibrahim Pulse Ox Last 24 Hr 99.4 F-100.5 F 79-104 15-30 100-159/47-85 93-100 Exam: General: Appears well with no apparent distress, thin and frail. Pleasant and cooperative. Appears comfortable. HEENT: PERRL, normocephalic, atraumatic. Mucous membranes moist. No jaundice noted. Conjunctiva moist and clear, sclerae anicteric Neck: No JVD/HJR, no thyromegaly or lymphadenopathy noted. Cardiac: Regular rate and rhythm. Lungs: Clear to auscultation without accessory muscle use to assist the respiratory pattern. Requiring oxygen at 2 L via nasal cannula. Abdomen: Soft, bowel sounds normoactive. Nontender and nondistended. Extremities: No clubbing, cyanosis noted. No edema noted. Upper extremity pulses 2+. Lower extremity pulses 2+. Capillary refill less than 3 seconds. Skin: No unusual lesions or rashes. No skin breakdown appreciated. Neuro: Awake, alert and oriented 3. Moves all extremities well without hemiparesis or paralysis. No essential tremor is appreciated. Result/EKG - Labs CBC & BMP: 12/10/16 05:22 12/10/16 05:22 Lab Results: I have reviewed the past 24 hour labs Labs: Laboratory Results - last 24 hr 12/10/16 12/10/16 05:22 05:22 WBC 15.2 H RBC 4.02 Hgb 7.8 L Hct 26.6 L MCV 66.2 L MCH 19 L MCHC 29.3 L RDW 26.9 H Plt Count 227 MPV 10.5 Neut % (Auto) 87.2 H Lymph % (Auto) 6.8 L [place] % (Auto) 4.3 Eos % (Auto) 0.1 Baso % (Auto) 0.1 Neut # (Auto) 13.3 H Lymph # (Auto) 1.0 L [place] # (Auto) 0.7 Eos # (Auto) 0.0 Baso # (Auto) 0.0 Immature Gran % 1.5 Nucleated RBC % 0.0 Immature Gran # 0.23 Nucleated RBCs # 0.00 Platelet Estimate Adequate Hypochromasia 1+ Microcytosis Slight Ovalocytes Slight Morphology Comment Sodium 138 Potassium 4.0 Chloride 104 Carbon Dioxide 25 Anion Gap 13.0 BUN 17 Creatinine 1.00 GFR Calculation 82 BUN/Creatinine Ratio 17.00 Glucose 95 Calculated Osmolality 276.7 Calcium 8.0 L Magnesium 2.4 Quality Measures - VTE Contraindication to Pharmacological VTE Prophylaxis: High Risk of Bleeding
--- NOTE | 2016-12-10 09:07 | Physician Query Form ---
CLICK EDIT DOCUMENT TO SELECT QUERY ANSWER --> OK --> SIGN Maya Sam RN Clinical Sanding Machine Buffer W) [phone] (f) [phone] [email or web address]: Make your selection(s) from the choices in EACH section by typing an "x" and enter comments in the comment section. Please use your independent medical judgment in providing your response. This request does not imply that any particular answer is desired or expected. CLINICAL INDICATORS: (Providers should not edit this section) Height: 5ft 10in Weight: 119 lbs National Business Director BMI: 17.5 Nutritional supplements: Breeze with all meals Test Deck Supervisor notes: Underweight Other clinical notes: thin, frail Based on the above, which following choice most accurately represents the patient's nutritional status? ( ) Malnutrition ( ) mild ( ) moderate ( ) severe ( ) Protein calorie malnutrition ( ) mild (X ) moderate ( ) severe ( ) Emaciation due to malnutrition ( ) Nutritional marasmus ( ) Cachexia ( ) Underweight ( ) No nutritional deficiency ( ) Other, please specify: ( ) Clinically unable to determine Mild Malnutrition (BMI < 18.5, % Normal Body Weight 85-95%) Moderate Malnutrition (BMI < 17, % Normal Body Weight 75-85%) Severe Malnutrition (BMI < 16, % Normal Body Weight < 75%) Source: Angelia COMMENTS: PLEASE ALSO DOCUMENT RESPONSE IN PROGRESS NOTES AND/OR DISCHARGE SUMMARY Use of terms such as suspected, likely, or probable (associated with a specific diagnosis that is being evaluated, monitored, or treated as if it exists) are acceptable and can be restated in the discharge summary if not ruled out. MTDD
--- NOTE | 2016-12-10 10:23 | Hospitalist Progress Note ---
Assessment and Plan (1) COPD (chronic obstructive pulmonary disease) Status: Chronic Current Visit: Yes (2) Acute blood loss anemia Status: Acute Assessment and plan: Transfused 2 units PRBC 12/08/16 H/H down a little today Will check serial H/H, transfuse as needed GI consulted, considering scope next week Current Visit: Yes (3) Lower GI bleed Status: Acute Assessment and plan: GI assisting Current Visit: Yes Hospitalist: Subjective Interval history: No acute events overnight. Patient reports that he feels much better this morning. His sob is resolved. He was febrile yesterday for most of the day. CXR and UA without acute process. Started on Rocephin. H/H down some today, will trend. F/u repeat Exam - Constitutional Vitals: Period Temp Pulse Resp BP Sys/Ibrahim Pulse Ox Last 24 Hr 99.4 F-100.5 F 79-104 15-30 100-159/47-85 91-100 General appearance: under weight - Head Head exam: Present: normocephalic, atraumatic - Eye Eye exam: Present: EOMI Pupils: Present: LIBRADO - ENT ENT exam: Present: normal exam - Neck Neck exam: Present: normal inspection - Respiratory Respiratory exam: Present: clear to auscultation bilaterally. Absent: rhonchi, wheezes - Cardiovascular Cardiovascular exam: Present: regular rate and rhythm - GI/Abdominal GI/Abdominal exam: Present: normal bowel sounds, soft. Absent: tenderness, rebound - Extremities Exam Extremities exam: Present: normal inspection - Back Exam Back exam: Present: normal inspection - Neurological Exam Neurological exam: Present: alert - Psychiatric Psychiatric exam: Present: normal affect, normal mood - Skin Skin exam: Present: warm, intact Results - Labs CBC & BMP: 12/10/16 05:22 12/10/16 05:22 Quality Measures - VTE Contraindication to Pharmacological VTE Prophylaxis: High Risk of Bleeding
[2016-12-10 10:51] LABS: Hematocrit 27.3 VOL% (42.0-52.0)
--- NOTE | 2016-12-10 11:38 | Gastrointestinal Progress Note ---
Assessment and Plan (1) Acute blood loss anemia Status: Acute Assessment and plan: 12/10-Hgb holding at 8 w/o overt bleeding. No reports of abd pain. Plavix continues to be held with plans for upper endoscopy next week. Plan and addendum to follow by Dr Alejo. 12/09-Findings on admission of SOB and weakness with hgb 5.1, now 8.6 following 2 units PRBC. Last endoscopy in 2006. No GI complaints other than contradictory reports of melena/hematochezia on admission denied at this time by patient. Obtain stool studies and check serial HH. Plan for upper endoscopy when cleared from cardiac standpoint. Plan and addendum to follow by Dr Alejo. Current Visit: Yes Gastroenterology - PN: Subj Interval history: CC: Anemia Pt is seen awake and alert, states he is feeling about the same. Denies any overt bleeding at this time. Denies any nausea or vomiting. Hemoglobin is stable at 8 today. Abdomen is soft, nontender. Pt is noted to have been febrile on yesterday now with low grade temp. He has had Rocephin started. Pt states that he is tolerating his diet at this time. ROS: Denies SOB or chest pain Exam (Progress Note) - Constitutional Vitals: Period Temp Pulse Resp BP Sys/Ibrahim Pulse Ox Last 24 Hr 99.4 F-100.5 F 79-104 15-30 90-159/47-85 91-100 - Other Additional findings: General appearance: normal weight, no acute distress - Head Head exam: Present: normal inspection, normocephalic - Eye Eye exam: Present: other (lids and conjunctiva unremarkable). Absent: scleral icterus - ENT ENT exam: Present: normal exam, normal oropharynx - Neck Neck exam: Present: normal inspection - Respiratory Respiratory exam: Present: clear to auscultation bilaterally. Absent: rales, rhonchi, wheezes - Cardiovascular Cardiovascular exam: Present: regular rate and rhythm. Absent: diastolic murmur , JVD, systolic murmur - GI/Abdominal GI/Abdominal exam: Present: normal bowel sounds, soft. Absent: ascites, distended, mass, organomegaly, tenderness - Extremities Exam Extremities exam: Present: normal inspection, full ROM - Back Exam Back exam: Present: normal inspection - Neurological Exam Neurological exam: Present: alert, oriented X3 - Psychiatric Psychiatric exam: Present: normal affect, normal mood - Skin Skin exam: Present: normal color, warm, dry Results - Labs CBC & BMP: 12/10/16 10:30 12/10/16 05:22 Lab Results: I have reviewed the past 24 hour labs
[2016-12-10] MEDS ORDERED: PHENOL 1.4% THROAT SPRAY 177 ML BOTTLE PO PRN (17:15)
[2016-12-10] MEDS: cefTRIAXone 1,000 MG in SODIUM CHLORIDE 0.9% 100 ML IV SCH (20:12)
[2016-12-10] MEDS: ATORVASTATIN 20 MG TABLET PO SCH (20:13)
[2016-12-11 07:39] LABS: Basophils % 0.1 % (0.0-0.8); Eosinophils # 0.2 10*3/uL (0.0-0.87); Eosinophils % 1.8 % (0.00-10.9); Hematocrit 25.6 VOL% (42.0-52.0); Hemoglobin 7.4 GM/DL (14.0-18.0); Immature Granulocytes % 0.5 %; Immature Granulocytes Absolute 0.05 #; Lymphocytes # 1.1 10*3/uL (1.4-4.0); Lymphocytes % 12.4 % (21.2-54.2); Mean Corpuscular HGB Conc 28.9 GM/DL (32-36); Mean Corpuscular Hemoglobin 19 PG (27-34); Monocytes # 0.6 10*3/uL (0.11-0.8); Monocytes % 6.4 % (1.7-12.7); Neutrophils # 7.3 10*3/uL (1.4-7.4); Neutrophils % 78.8 % (38.7-73.9); Platelet Count 208 T/CUMM (130-400); Red Blood Count 3.82 MC/CUMM (3.8-5.5); Red Cell Distribution Width 27.5 % (9.3-17.3); White Blood Count 9.2 T/CUMM (4-12)
[2016-12-11 07:59] LABS: Calcium 7.7 MG/DL (8.5-10.1)
[2016-12-11 08:00] LABS: Magnesium 2.7 MG/DL (1.8-2.4); Osmolality,Calculated 279.5 MOS/KG (273-304); Potassium 3.9 MMOL/L (3.5-5.1)
[2016-12-11 08:03] LABS: Hypochromasia 2+; Macrocytosis 1+; Microcytosis 1+
--- NOTE | 2016-12-11 08:21 | Cardiology Progress Note ---
Cardiology - PN: Subj Interval history: Cardiology note 76-year-old man admitted with GI bleed and symptomatic anemia. Hemoglobin 5.1 hematocrit 18.4 on presentation. Has been transfused And feels much better. Blood pressure 120/60 Pulse 78 and regular O2 sat 97 on room air Nearly edentulous Regular rhythm no gallop Decreased breath sounds but clear Abdomen soft benign Eating without difficulty Impression Status post GI bleed with severe anemia While on Plavix status post coronary stent December [address] Samano Hypertension Ejection fraction 35-40% Ischemic cardiomyopathy compensated Plan Follow H&H Holding Plavix, EGD next week Exam (Progress Note) - Constitutional Vitals: Period Temp Pulse Resp BP Sys/Ibrahim Pulse Ox Last 24 Hr 98.6 F-100.8 F 80-97 16-25 90-129/44-66 91-97 Result/EKG - Labs CBC & BMP: 12/11/16 05:29 12/11/16 05:29 Labs: Laboratory Results - last 24 hr 12/08/16 12/10/16 12/11/16 21:42 10:30 05:29 WBC 9.2 D RBC 3.82 Hgb 8.0 L 7.4 L Hct 27.3 L 25.6 L MCV 67.0 L MCH 19 L MCHC 28.9 L RDW 27.5 H Plt Count 208 Neut % (Auto) 78.8 H Lymph % (Auto) 12.4 L [place] % (Auto) 6.4 Eos % (Auto) 1.8 Baso % (Auto) 0.1 Neut # (Auto) 7.3 Lymph # (Auto) 1.1 L [place] # (Auto) 0.6 Eos # (Auto) 0.2 Baso # (Auto) 0.0 Immature Gran % 0.5 Nucleated RBC % 0.0 Immature Gran # 0.05 Nucleated RBCs # 0.00 Hypochromasia 2+ Microcytosis 1+ Macrocytosis 1+ Sodium Potassium Chloride Carbon Dioxide Anion Gap BUN Creatinine GFR Calculation BUN/Creatinine Ratio Glucose Calculated Osmolality Calcium Magnesium Transferrin 255 12/11/16 05:29 WBC RBC Hgb Hct MCV MCH MCHC RDW Plt Count Neut % (Auto) Lymph % (Auto) [place] % (Auto) Eos % (Auto) Baso % (Auto) Neut # (Auto) Lymph # (Auto) [place] # (Auto) Eos # (Auto) Baso # (Auto) Immature Gran % Nucleated RBC % Immature Gran # Nucleated RBCs # Hypochromasia Microcytosis Macrocytosis Sodium 139 Potassium 3.9 Chloride 104 Carbon Dioxide 25 Anion Gap 13.9 BUN 24 H Creatinine 1.00 GFR Calculation 81 BUN/Creatinine Ratio 24.00 H Glucose 79 Calculated Osmolality 279.5 Calcium 7.7 L Magnesium 2.7 H Transferrin Quality Measures - VTE Contraindication to Pharmacological VTE Prophylaxis: High Risk of Bleeding
[2016-12-11] MEDS: LISINOPRIL 2.5 MG TABLET PO SCH (09:58)
[2016-12-11] MEDS: CARVEDILOL 6.25 MG TABLET PO SCH ×2 (09:58→21:08)
[2016-12-11] MEDS: PANTOPRAZOLE 40 MG TABLET PO SCH (09:58)
--- NOTE | 2016-12-11 10:35 | Gastrointestinal Progress Note ---
Assessment and Plan (1) Acute blood loss anemia Status: Acute Assessment and plan: 12/11-hemoglobin 7.4. No reports of overt bleeding. Continue to monitor H&H. Advance to full liquid diet. Stools for occult blood still pending. Plan for tentative EGD on Wednesday to further evaluate. Plan an addendum to followed by Dr. Alejo. 12/10-Hgb holding at 8 w/o overt bleeding. No reports of abd pain. Plavix continues to be held with plans for upper endoscopy next week. Plan and addendum to follow by Dr Alejo. 12/09-Findings on admission of SOB and weakness with hgb 5.1, now 8.6 following 2 units PRBC. Last endoscopy in 2006. No GI complaints other than contradictory reports of melena/hematochezia on admission denied at this time by patient. Obtain stool studies and check serial HH. Plan for upper endoscopy when cleared from cardiac standpoint. Plan and addendum to follow by Dr Alejo. Current Visit: Yes Gastroenterology - PN: Subj Interval history: CC: Anemia Patient is seen awake and alert with family at bedside. States she is feeling much better today. Denies any overt bleeding. Abdomen soft, nontender. Hemoglobin is noted to have trended downward slightly at 7.4 today. Plavix continues to be held at this time. Will advance diet at this time so patient tolerates. Tentative plans at present time to proceed with EGD on Wednesday to further evaluate. ROS: Denies shortness of breath or chest pain. Exam (Progress Note) - Constitutional Vitals: Period Temp Pulse Resp BP Sys/Ibrahim Pulse Ox Last 24 Hr 98.6 F-100.8 F 80-96 16-25 100-123/44-58 91-97 - Other Additional findings: General appearance: normal weight, no acute distress - Head Head exam: Present: normal inspection, normocephalic - Eye Eye exam: Present: other (lids and conjunctiva unremarkable). Absent: scleral icterus - ENT ENT exam: Present: normal exam, normal oropharynx - Neck Neck exam: Present: normal inspection - Respiratory Respiratory exam: Present: clear to auscultation bilaterally. Absent: rales, rhonchi, wheezes - Cardiovascular Cardiovascular exam: Present: regular rate and rhythm. Absent: diastolic murmur , JVD, systolic murmur - GI/Abdominal GI/Abdominal exam: Present: normal bowel sounds, soft. Absent: ascites, distended, mass, organomegaly, tenderness - Extremities Exam Extremities exam: Present: normal inspection, full ROM - Back Exam Back exam: Present: normal inspection - Neurological Exam Neurological exam: Present: alert, oriented X3 - Psychiatric Psychiatric exam: Present: normal affect, normal mood - Skin Skin exam: Present: normal color, warm, dry Results - Labs CBC & BMP: 12/11/16 05:29 12/11/16 05:29 Lab Results: I have reviewed the past 24 hour labs
--- NOTE | 2016-12-11 16:12 | Hospitalist Progress Note ---
Assessment and Plan (1) Acute blood loss anemia Status: Acute Assessment and plan: The patient has acute GI blood loss. The patient has been taking Plavix. The patient will continue off Plavix and anticipate EGD on Wednesday with Dr. Alejo. Current Visit: Yes (2) COPD (chronic obstructive pulmonary disease) Status: Chronic Current Visit: Yes Hospitalist: Subjective Interval history: The patient is resting comfortably in the room today. He has had no further GI bleeding. The patient is breathing comfortably without palpitations or angina. Exam - Constitutional Vitals: Period Temp Pulse Resp BP Sys/Ibrahim Pulse Ox Last 24 Hr 98.6 F-100.2 F 76-88 16-20 88-123/42-58 92-97 General appearance: no acute distress - Respiratory Respiratory exam: Present: clear to auscultation bilaterally - Cardiovascular Cardiovascular exam: Present: regular rate and rhythm - GI/Abdominal GI/Abdominal exam: Present: normal bowel sounds Results - Labs CBC & BMP: 12/11/16 05:29 12/11/16 05:29 Lab Results: I have reviewed the past 24 hour labs Quality Measures - VTE Contraindication to Pharmacological VTE Prophylaxis: High Risk of Bleeding
[2016-12-11] MEDS: cefTRIAXone 1,000 MG in SODIUM CHLORIDE 0.9% 100 ML IV SCH (21:02)
[2016-12-11] MEDS: ATORVASTATIN 20 MG TABLET PO SCH (21:08)
[2016-12-12 04:23] LABS: Basophils % 0.2 % (0.0-0.8); Eosinophils # 0.3 10*3/uL (0.0-0.87); Eosinophils % 4.5 % (0.00-10.9); Hematocrit 24.6 VOL% (42.0-52.0); Hemoglobin 7.3 GM/DL (14.0-18.0); Immature Granulocytes % 0.2 %; Immature Granulocytes Absolute 0.01 #; Lymphocytes # 1.2 10*3/uL (1.4-4.0); Lymphocytes % 19.6 % (21.2-54.2); Mean Corpuscular HGB Conc 29.7 GM/DL (32-36); Mean Corpuscular Hemoglobin 20 PG (27-34); Mean Corpuscular Volume 66.8 FL (87-102); Mean Platelet Volume 10.4 FL (9.6-12.0); Monocytes # 0.6 10*3/uL (0.11-0.8); Monocytes % 9.1 % (1.7-12.7); Neutrophils # 4.2 10*3/uL (1.4-7.4); Neutrophils % 66.4 % (38.7-73.9); Platelet Count 201 T/CUMM (130-400); Red Blood Count 3.68 MC/CUMM (3.8-5.5); Red Cell Distribution Width 27.3 % (9.3-17.3); White Blood Count 6.3 T/CUMM (4-12)
[2016-12-12 04:54] LABS: Calcium 7.7 MG/DL (8.5-10.1); Magnesium 2.5 MG/DL (1.8-2.4); Osmolality,Calculated 280.4 MOS/KG (273-304); Potassium 3.4 MMOL/L (3.5-5.1)
--- NOTE | 2016-12-12 10:13 | Hospitalist Progress Note ---
Assessment and Plan (1) Acute blood loss anemia Status: Acute Assessment and plan: The patient has acute GI blood loss. The patient has been taking Plavix. The patient will continue off Plavix and anticipate EGD on Wednesday with Dr. Alejo. Current Visit: Yes (2) COPD (chronic obstructive pulmonary disease) Status: Chronic Current Visit: Yes Hospitalist: Subjective Interval history: The patient has no new bowel complaints. There has been no rectal bleeding. He is breathing comfortably. Exam - Constitutional Vitals: Period Temp Pulse Resp BP Sys/Ibrahmi Pulse Ox Last 24 Hr 98.7 F-99.7 F 68-80 16-20 88-122/42-79 94-98 General appearance: no acute distress - Respiratory Respiratory exam: Present: clear to auscultation bilaterally, prolonged expiratory phase - Cardiovascular Cardiovascular exam: Present: regular rate and rhythm Results - Labs CBC & BMP: 12/12/16 03:11 12/12/16 03:11 Lab Results: I have reviewed the past 24 hour labs Quality Measures - VTE Contraindication to Pharmacological VTE Prophylaxis: High Risk of Bleeding
[2016-12-12] MEDS ORDERED: SODIUM CHLORIDE 0.9% 250 ML IV PRN (10:20)
--- NOTE | 2016-12-12 10:34 | Cardiology Progress Note ---
Cardiology - PN: Subj Interval history: Cardiology note 76-year-old man status post GI bleed with symptomatic anemia while on Plavix. Hemoglobin 5.1 hematocrit 18.4 on presentation. Hemoglobin today 7.3 and hematocrit 24.6 Blood pressure 110/62 in the right arm by me O2 sat 94% room air Regular rhythm no gallop Decreased breath sounds no rhonchi or wheezing Abdomen nontender No leg edema Impression Status post GI bleed with severe anemia while on Plavix Status post RCA stent December [address] Samano Hypertension Ejection fraction 35-40% Ischemic cardia myopathy Plan Transfuse 2 units today Plavix DC'd EGD next week Exam (Progress Note) - Constitutional Vitals: Period Temp Pulse Resp BP Sys/Ibrahim Pulse Ox Last 24 Hr 98.7 F-99.7 F 68-80 16-20 88-122/42-79 94-98 Result/EKG - Labs CBC & BMP: 12/12/16 03:11 12/12/16 03:11 Labs: Laboratory Results - last 24 hr 12/12/16 12/12/16 03:11 03:11 WBC 6.3 D RBC 3.68 L Hgb 7.3 L Hct 24.6 L MCV 66.8 L MCH 20 L MCHC 29.7 L RDW 27.3 H Plt Count 201 MPV 10.4 Neut % (Auto) 66.4 Lymph % (Auto) 19.6 L [place] % (Auto) 9.1 Eos % (Auto) 4.5 Baso % (Auto) 0.2 Neut # (Auto) 4.2 Lymph # (Auto) 1.2 L [place] # (Auto) 0.6 Eos # (Auto) 0.3 Baso # (Auto) 0.0 Immature Gran % 0.2 Nucleated RBC % 0.0 Immature Gran # 0.01 Nucleated RBCs # 0.00 Sodium 140 Potassium 3.4 L Chloride 104 Carbon Dioxide 26 Anion Gap 13.4 BUN 20 H Creatinine 0.90 GFR Calculation 92 BUN/Creatinine Ratio 22.00 H Glucose 85 Calculated Osmolality 280.4 Calcium 7.7 L Magnesium 2.5 H Quality Measures - VTE Contraindication to Pharmacological VTE Prophylaxis: High Risk of Bleeding
[2016-12-12] MEDS: CARVEDILOL 6.25 MG TABLET PO SCH ×2 (10:47→20:50)
[2016-12-12] MEDS: PANTOPRAZOLE 40 MG TABLET PO SCH (10:47)
[2016-12-12] MEDS: LISINOPRIL 2.5 MG TABLET PO SCH (10:48)
[2016-12-12] MEDS: ATORVASTATIN 20 MG TABLET PO SCH (20:50)
[2016-12-12] MEDS: cefTRIAXone 1,000 MG in SODIUM CHLORIDE 0.9% 100 ML IV SCH (20:54)
[2016-12-13] MEDS: ACETAMINOPHEN 325 MG TABLET PO PRN (00:16)
[2016-12-13 04:32] LABS: Basophils % 0.2 % (0.0-0.8); Eosinophils # 0.3 10*3/uL (0.0-0.87); Hematocrit 29.9 VOL% (42.0-52.0); Hemoglobin 9.1 GM/DL (14.0-18.0); Immature Granulocytes % 0.2 %; Immature Granulocytes Absolute 0.01 #; Lymphocytes # 1.3 10*3/uL (1.4-4.0); Lymphocytes % 22.4 % (21.2-54.2); Mean Corpuscular HGB Conc 30.4 GM/DL (32-36); Mean Corpuscular Hemoglobin 22 PG (27-34); Mean Corpuscular Volume 71.2 FL (87-102); Monocytes # 0.6 10*3/uL (0.11-0.8); Monocytes % 10.5 % (1.7-12.7); Neutrophils # 3.5 10*3/uL (1.4-7.4); Neutrophils % 60.7 % (38.7-73.9); Platelet Count 202 T/CUMM (130-400); Red Cell Distribution Width 27.4 % (9.3-17.3); White Blood Count 5.7 T/CUMM (4-12)
[2016-12-13 05:02] LABS: Calcium 7.7 MG/DL (8.5-10.1); Magnesium 2.5 MG/DL (1.8-2.4); Osmolality,Calculated 281.1 MOS/KG (273-304); Potassium 3.5 MMOL/L (3.5-5.1)
[2016-12-13 05:08] LABS: Hypochromasia 1+; Microcytosis 1+; Platelet Estimate Adequate
[2016-12-13] MEDS: PANTOPRAZOLE 40 MG TABLET PO SCH (08:37)
[2016-12-13] MEDS: CARVEDILOL 6.25 MG TABLET PO SCH ×2 (08:37→20:48)
[2016-12-13] MEDS: LISINOPRIL 2.5 MG TABLET PO SCH (08:37)
--- NOTE | 2016-12-13 13:14 | Hospitalist Progress Note ---
Assessment and Plan (1) Acute blood loss anemia Status: Acute Assessment and plan: The patient has acute GI blood loss. The patient has been taking Plavix. The patient will continue off Plavix and anticipate EGD on Wednesday with Dr. Alejo. I am going to restart the patient's beta agonist nebulized therapy to help with his wheezing today. Current Visit: Yes (2) COPD (chronic obstructive pulmonary disease) Status: Chronic Current Visit: Yes Hospitalist: Subjective Interval history: The patient was admitted to the hospital with rectal bleeding. He has received transfusion. The patient was taking Plavix and therefore Plavix was held and we are waiting for a washout interval before endoscopy. Dr. Alejo hopes to do the patient's case tomorrow. The patient complains of increased wheezing and has not been giving any nebulizer therapy in the last couple of days. Exam - Constitutional Vitals: Period Temp Pulse Resp BP Sys/Ibrahim Pulse Ox Last 24 Hr 97.8 F-99.7 F 67-87 16-20 112-154/51-86 93-98 General appearance: mild distress - Neck Neck exam: Present: normal inspection - Respiratory Respiratory exam: Present: prolonged expiratory phase, wheezes - Cardiovascular Cardiovascular exam: Present: regular rate and rhythm - GI/Abdominal GI/Abdominal exam: Present: normal bowel sounds Results - Labs CBC & BMP: 12/13/16 03:27 12/13/16 03:27 Lab Results: I have reviewed the past 24 hour labs Quality Measures - VTE Contraindication to Pharmacological VTE Prophylaxis: High Risk of Bleeding
--- NOTE | 2016-12-13 14:04 | Cardiology Progress Note ---
Cardiology - PN: Subj Interval history: Cardiology note 76-year-old man status post GI bleed with symptomatic anemia while on Plavix. Hemoglobin 5.1 hematocrit 18.4 on presentation. H&H 9.1 and hematocrit 29.9 after 2 more units yesterday. No abdominal pain. No shortness of breath. Blood pressure 134/76. Regular rhythm no gallop Clear lungs No leg edema Lab data today Sodium 142 potassium 3.5 chloride 107 CO2 26 BUN 12 creatinine 0.80 Glucose 82 White count 5.7 hemoglobin 9.1 hematocrit 29.9 Impression Status post GI bleed with severe anemia while on Plavix . Status post RCA stent December [address] Samano Hypertension Ischemic cardiomyopathy EF 35-40% Plan EGD this week Follow H&H Exam (Progress Note) - Constitutional Vitals: Period Temp Pulse Resp BP Sys/Ibrahim Pulse Ox Last 24 Hr 97.8 F-99.7 F 67-87 16-20 112-154/51-86 93-98 Result/EKG - Labs CBC & BMP: 12/13/16 03:27 12/13/16 03:27 Labs: Laboratory Results - last 24 hr 12/12/16 12/13/16 12/13/16 10:20 03:27 03:27 WBC 5.7 RBC 4.20 Hgb 9.1 L D Hct 29.9 L MCV 71.2 L MCH 22 L MCHC 30.4 L RDW 27.4 H Plt Count 202 Neut % (Auto) 60.7 Lymph % (Auto) 22.4 [place] % (Auto) 10.5 Eos % (Auto) 6.0 Baso % (Auto) 0.2 Neut # (Auto) 3.5 Lymph # (Auto) 1.3 L [place] # (Auto) 0.6 Eos # (Auto) 0.3 Baso # (Auto) 0.0 Immature Gran % 0.2 Nucleated RBC % 0.0 Immature Gran # 0.01 Nucleated RBCs # 0.00 Platelet Estimate Adequate Hypochromasia 1+ Microcytosis 1+ Sodium 142 Potassium 3.5 Chloride 107 Carbon Dioxide 26 Anion Gap 12.5 BUN 12 Creatinine 0.80 GFR Calculation 96 BUN/Creatinine Ratio 15.00 Glucose 82 Calculated Osmolality 281.1 Calcium 7.7 L Magnesium 2.5 H Blood Type AB POSITIVE Antibody Screen Negative Crossmatch See Detail Quality Measures - VTE Contraindication to Pharmacological VTE Prophylaxis: High Risk of Bleeding
[2016-12-13] MEDS: ALBUTEROL/IPRATROPIUM 3 ML NEB RESP TX SCH ×2 (14:57→23:50)
[2016-12-13] MEDS: cefTRIAXone 1,000 MG in SODIUM CHLORIDE 0.9% 100 ML IV SCH (20:47)
[2016-12-13] MEDS: ATORVASTATIN 20 MG TABLET PO SCH (20:48)
[2016-12-14] MEDS: ALBUTEROL 2.5 MG/3 ML NEB RESP TX PRN (03:08)
[2016-12-14 03:28] LABS: Calcium 7.8 MG/DL (8.5-10.1); Magnesium 2.4 MG/DL (1.8-2.4); Osmolality,Calculated 279.3 MOS/KG (273-304); Potassium 3.8 MMOL/L (3.5-5.1)
[2016-12-14 03:29] LABS: Eosinophils # 0.3 10*3/uL (0.0-0.87); Eosinophils % 5.5 % (0.00-10.9); Hemoglobin 10.5 GM/DL (14.0-18.0); Immature Granulocytes % 0.3 %; Immature Granulocytes Absolute 0.02 #; Lymphocytes # 1.4 10*3/uL (1.4-4.0); Lymphocytes % 22.8 % (21.2-54.2); Mean Corpuscular HGB Conc 29.2 GM/DL (32-36); Mean Corpuscular Hemoglobin 21 PG (27-34); Monocytes # 0.6 10*3/uL (0.11-0.8); Monocytes % 9.9 % (1.7-12.7); Neutrophils # 3.8 10*3/uL (1.4-7.4); Neutrophils % 61.5 % (38.7-73.9); Platelet Count 218 T/CUMM (130-400); Red Blood Count 4.92 MC/CUMM (3.8-5.5); Red Cell Distribution Width 27.8 % (9.3-17.3); White Blood Count 6.1 T/CUMM (4-12)
[2016-12-14 03:32] LABS: Hematocrit 35.3 VOL% (42.0-52.0)
[2016-12-14 04:40] LABS: Hypochromasia 1+; Platelet Estimate Normal
[2016-12-14 04:41] LABS: Ovalocytes Few; Tear Drop Cells Few
[2016-12-14] MEDS: ALBUTEROL/IPRATROPIUM 3 ML NEB RESP TX SCH ×2 (07:47→15:48)
--- NOTE | 2016-12-14 11:14 | Hospitalist Progress Note ---
Assessment and Plan (1) Acute blood loss anemia Status: Acute Assessment and plan: Hemoglobin hematocrit improved after the transfusion and seems to be stable/ improved still no overt bleeding but the stool Hemoccult positive. EGD planned today by GI will follow recommendation. Patient is on p.o. Protonix I will change to IV Current Visit: Yes (2) Coronary artery disease Status: Chronic Current Visit: Yes (3) Hypertension Status: Chronic Assessment and plan: Controlled Current Visit: Yes (4) Ischemic cardiomyopathy Status: Chronic Assessment and plan: Patient has ischemic cardiomyopathy with reduced left ventricle ejection fraction. He is compensated clinically Current Visit: Yes (5) COPD (chronic obstructive pulmonary disease) Status: Chronic Assessment and plan: No acute symptom and has been a stable Current Visit: Yes Hospitalist: Subjective Interval history: Mr. Salomon is a 76 year old male with known history of coronary artery disease status post CT with PCI, CVA, hypertension, hyperlipidemia, COPD and ischemic cardiomyopathy. His ejection fraction was 40-50% on echo in 2014. Echo this admission revealed ejection fraction 35-40%.. He was admitted on 12/09/2016 with a short of breath for 3 weeks. He had mild elevated troponin but noted to have a significant anemia. He was transfused 2 packed RBC. Cardiology has seen and believe patient has mild elevated troponin due to severe anemia. His hemoglobin was 5.1 on admission. He reported some dark stool but no overt rectal bleed. GI GI has seen and plan to do EGD today. He was on Plavix prior to admission which was stopped. Patient has no acute symptom at present denies any abdominal pain Exam - Constitutional Vitals: Period Temp Pulse Resp BP Sys/Ibrahim Pulse Ox Last 24 Hr 97.1 F-98.7 F 60-82 16-20 125-159/57-83 95-100 General appearance: no acute distress - Respiratory Respiratory exam: Present: clear to auscultation bilaterally. Absent: rales, rhonchi - Cardiovascular Cardiovascular exam: Present: regular rate and rhythm. Absent: tachycardia - GI/Abdominal GI/Abdominal exam: Present: normal bowel sounds, soft. Absent: distended, tenderness - Extremities Exam Extremities exam: Absent: edema - Neurological Exam Neurological exam: Present: alert, oriented X3 Results - Labs CBC & BMP: 12/14/16 02:17 12/14/16 02:17 Lab Results: I have reviewed the past 24 hour labs Quality Measures - VTE Contraindication to Pharmacological VTE Prophylaxis: High Risk of Bleeding
--- NOTE | 2016-12-14 12:30 | Cardiology Progress Note ---
Cardiology - PN: Subj Interval history: The chart has been reviewed. He has a history of coronary artery disease with stenting in 2004 to his RCA. He was admitted to the hospital with GI bleeding. Overall he continues to have some symptoms of shortness of breath, he is not experiencing chest pain. His hemoglobin continues to be low but overall is stable. Impression Status post GI bleed with severe anemia while on Plavix . The Plavix has been discontinued and this is appropriate. Status post RCA stent [address] Samano Hypertension Ischemic cardiomyopathy EF 35-40%. There is no evidence of failure on exam today. He appears to have some ischemia from his profound anemia. Clinically he is improving and he is undergoing GI workup. Agree with withholding the Plavix. No further cardiac recommendations at this time. Please reconsult should any dynamic cardiac events occur. Exam (Progress Note) - Constitutional Vitals: Period Temp Pulse Resp BP Sys/Ibrahim Pulse Ox Last 24 Hr 97.1 F-99.5 F 60-82 16-20 125-174/57-90 95-100 Result/EKG - Labs CBC & BMP: 12/14/16 02:17 12/14/16 02:17 Labs: Laboratory Results - last 24 hr 12/14/16 12/14/16 02:17 02:17 WBC 6.1 RBC 4.92 Hgb 10.5 L Hct 35.3 L MCV 73.0 L MCH 21 L MCHC 29.2 L RDW 27.8 H Plt Count 218 Neut % (Auto) 61.5 Lymph % (Auto) 22.8 [place] % (Auto) 9.9 Eos % (Auto) 5.5 Baso % (Auto) 0.0 Neut # (Auto) 3.8 Lymph # (Auto) 1.4 [place] # (Auto) 0.6 Eos # (Auto) 0.3 Baso # (Auto) 0.0 Immature Gran % 0.3 Nucleated RBC % 0.0 Immature Gran # 0.02 Nucleated RBCs # 0.00 Platelet Estimate Normal Hypochromasia 1+ Tear Drop Cells Few Ovalocytes Few Sodium 141 Potassium 3.8 Chloride 105 Carbon Dioxide 29 Anion Gap 10.8 BUN 9 Creatinine 0.80 GFR Calculation 94 BUN/Creatinine Ratio 11.00 Glucose 92 Calculated Osmolality 279.3 Calcium 7.8 L Magnesium 2.4 Quality Measures - VTE Contraindication to Pharmacological VTE Prophylaxis: High Risk of Bleeding
[2016-12-14] MEDS ORDERED: PROPOFOL 200 MG/20 ML VIAL IV ONE (12:50)
[2016-12-14] MEDS ORDERED: LIDOCAINE 2% 5 ML VIAL ONE (12:50)
--- NOTE | 2016-12-14 12:50 | History and Physical Update ---
History and Physical Update - History and Physical H&P was reviewed, the patient examined and there: are no changes in the patients condition since last H&P was completed. - Physical Exam Mental Status: alert and oriented Heart: regular rate and rhythm Lung: clear to auscultation Abdomen: within normal limits Vitals: within normal limits
--- NOTE | 2016-12-14 13:04 | Operative Note ---
Date of procedure: 12/14/16 Pre-op diagnosis: Iron deficiency anemia, recent dark stools Procedure: Procedure: Esophagogastroduodenoscopy Brief clinical abstract: Patient is a 76-year-old male admitted with recent symptomatic anemia with dark stools and documented iron deficiency. He was on Plavix at the time which has been held for 5 days. Indication for procedure: GI bleed, iron deficiency Endoscopic findings:[After informed consent was obtained, the patient was placed in the left lateral decubitus position. The gastroscope was inserted in the upper esophagus under direct vision with no resistance encountered. Esophageal mucosa appeared normal down to the squamocolumnar junction. A mildly obstructive fibrous appearing stricture was noted at that level consistent with reflux etiology. No erosions or ulcerations were seen. Just distal to this was a moderate sized hiatal hernia. The endoscope was advanced in the stomach which was carefully examined including retroflexed view of the cardia and fundus. Some mild antral gastritis was noted. No ulcers or other significant findings were noted in the stomach. The pyloric channel was normal. In the duodenal bulb posteriorly there was a protuberant lesion which appeared consistent with possible ampulla. A photo was taken of this. No bile was noted to be draining from that. Second and third portion of the duodenum had normal appearance. The endoscope was then removed. He appeared to tolerate the procedure well. Impression: #1 mild gastritis #2 duodenal bulb lesion-? Ampullary Recommendations: Colonoscopy to further evaluate blood in stool and iron deficiency. Anesthesia: MAC Surgeon / Physician: Nino Alejo Estimated blood loss: none Specimens: none sent Condition: stable Disposition: post procedure unit Results - Labs CBC & BMP: 12/14/16 02:17 12/14/16 02:17 Discharge Plan - Discharge Medications No Action Clopidogrel [Plavix] 75 mg PO DAILY #30 tablet Atorvastatin [Lipitor] 20 mg PO BEDTIME #30 tablet Albuterol Inhaler [Proventil Inhaler] 2 puff INH Q6H PRN PRN Reason: Shortness Of Breath/Wheezing Captopril 6.25 mg PO BID Carvedilol 0.5 tablet PO BID - Follow Up or Referral - Forms/Instructions
--- NOTE | 2016-12-14 13:06 | Anesthesia Post-Op ---
Anesthesia Post OP - Post Ansesthetic Evaluation Patient seen in post op: Yes Resp: within normal limits CV: within normal limits Mental: within normal limits Temp: within normal limits Uard-Ph-Behaejdcp: within normal limits Nausea and Vomiting: within normal limits Pain: within normal limits
[2016-12-14] MEDS: PANTOPRAZOLE 40 MG VIAL IV SCH ×2 (13:59→21:07)
[2016-12-14] MEDS: CARVEDILOL 6.25 MG TABLET PO SCH ×2 (14:00→21:12)
[2016-12-14] MEDS: LISINOPRIL 2.5 MG TABLET PO SCH (14:00)
--- NOTE | 2016-12-14 14:35 | Physician Query Form ---
CLICK EDIT DOCUMENT TO SELECT QUERY ANSWER --> OK --> SIGN Maya Sam RN Clinical Film Editor Supervisor W) [phone] (f) [phone] [email or web address] PROVIDERS: Make your selection(s) from the choices in EACH section by typing an "x" and enter comments in the comment section. Please use your independent medical judgment in providing your response. This request does not imply that any particular answer is desired or expected. CLINICAL INDICATORS: (Providers should not edit this section) Based on documentation of "GI bleed with severe anemia while on Plavix". Pt. transfused with 3 units PRBC's. Based on the above, could you clarify the appropriate diagnosis, if significant , that supports the above abnormalities and additional evaluation, monitoring, and/or treatment rendered: ( ) GI bleed due to use of Plavix ( ) GI bleed not due to use of Plavix ( ) GI bleed due to ( ) Other, please specify: ( x) Clinically unable to determine COMMENTS: PLEASE ALSO DOCUMENT RESPONSE IN PROGRESS NOTES AND/OR DISCHARGE SUMMARY Use of terms such as suspected, likely, or probable (associated with a specific diagnosis that is being evaluated, monitored, or treated as if it exists) are acceptable and can be restated in the discharge summary if not ruled out. MTDD
[2016-12-14] MEDS: PANTOPRAZOLE 40 MG TABLET PO SCH (16:42)
[2016-12-14] MEDS ORDERED: POLYETHYLENE GLYCOL POWDER 255 GM BOTTLE PO ONE (18:00)
[2016-12-14] MEDS: cefTRIAXone 1,000 MG in SODIUM CHLORIDE 0.9% 100 ML IV SCH (21:12)
[2016-12-14] MEDS: ATORVASTATIN 20 MG TABLET PO SCH (21:13)
[2016-12-15] MEDS: ALBUTEROL/IPRATROPIUM 3 ML NEB RESP TX SCH ×4 (01:06→23:41)
[2016-12-15 05:00] LABS: Eosinophils # 0.3 10*3/uL (0.0-0.87); Eosinophils % 4.6 % (0.00-10.9); Hematocrit 32.1 VOL% (42.0-52.0); Hemoglobin 9.8 GM/DL (14.0-18.0); Immature Granulocytes % 0.3 %; Immature Granulocytes Absolute 0.02 #; Lymphocytes # 1.5 10*3/uL (1.4-4.0); Lymphocytes % 22.2 % (21.2-54.2); Mean Corpuscular HGB Conc 30.5 GM/DL (32-36); Mean Corpuscular Hemoglobin 22 PG (27-34); Mean Corpuscular Volume 71.2 FL (87-102); Monocytes # 0.6 10*3/uL (0.11-0.8); Monocytes % 8.6 % (1.7-12.7); Neutrophils # 4.2 10*3/uL (1.4-7.4); Neutrophils % 64.3 % (38.7-73.9); Platelet Count 223 T/CUMM (130-400); Red Blood Count 4.51 MC/CUMM (3.8-5.5); Red Cell Distribution Width 27.9 % (9.3-17.3); White Blood Count 6.5 T/CUMM (4-12)
[2016-12-15 05:15] LABS: Calcium 7.6 MG/DL (8.5-10.1); Magnesium 2.2 MG/DL (1.8-2.4); Osmolality,Calculated 277.3 MOS/KG (273-304); Potassium 3.9 MMOL/L (3.5-5.1)
[2016-12-15 05:19] LABS: Hypochromasia 1+; Microcytosis Slight; Platelet Estimate Normal
[2016-12-15] MEDS ORDERED: MAGNESIUM CITRATE 300 ML BOTTLE PO ONE (06:00)
[2016-12-15] MEDS: PANTOPRAZOLE 40 MG VIAL IV SCH ×2 (09:27→23:14)
[2016-12-15] MEDS ORDERED: PROPOFOL 200 MG/20 ML VIAL IV ONE (12:05)
[2016-12-15] MEDS ORDERED: LIDOCAINE 1% 5 ML VIAL ONE (12:05)
--- NOTE | 2016-12-15 12:34 | Operative Note ---
Date of procedure: 12/15/16 Pre-op diagnosis: Blood in stool, iron deficiency Procedure: Procedure note: Colonoscopy with biopsies ileocecal valve ulcer Physician: Dr. Chris Alejo Brief clinical abstract: Patient is a 76-year-old male who has had recently noted iron deficiency anemia presenting with hemoglobin in the 5 range and also occult blood in stool. He had EGD yesterday with no significant bleeding source found. Endoscopic findings: After informed consent was obtained, the patient was placed in the left lateral decubitus position. Digital rectal exam was performed with no palpable abnormalities felt. Pediatric videocolonoscope was inserted into the rectum and advanced to the cecum without difficulty. Terminal ileum was intubated and distal 5-10 cm examined with no abnormality seen with the endoscope then pulled back into the cecum. Retroflex view within the cecum was performed back to the level of the hepatic flexure. The endoscope was advanced back to the cecum and on withdrawal colonic mucosa was carefully examined. Bowel prep was of good quality. There was a 1-1.5 cm diameter ulcer with some friability on the ileocecal valve. Multiple biopsies were obtained from this for pathologic examination. It was noted to have soft consistency. Distal to this no other similar areas or inflammatory changes were seen. Vascular pattern throughout the remainder the colon appeared normal. On withdrawal no polyps were noted. No diverticuli were seen. The endoscope was withdrawn in the rectum with retroflex view showing no abnormalities. The endoscope was then removed. He appeared to tolerate the procedure well. Impression: Ileocecal valve ulcer-otherwise normal colonoscopy. This could be nonsteroidal related, inflammatory bowel disease, or malignancy although it does not appear to be grossly malignant. Plan: Diet as tolerated. Iron supplementation. Follow-up pathology from above. He could probably be discharged soon if remains stable. Anesthesia: MAC Surgeon / Physician: Nino Alejo Estimated blood loss: minimal Specimens: other (Ileocecal valve ulcer) Condition: stable Disposition: post procedure unit Results - Labs CBC & BMP: 12/15/16 03:49 12/15/16 03:49 Discharge Plan - Discharge Medications No Action Clopidogrel [Plavix] 75 mg PO DAILY #30 tablet Atorvastatin [Lipitor] 20 mg PO BEDTIME #30 tablet Albuterol Inhaler [Proventil Inhaler] 2 puff INH Q6H PRN PRN Reason: Shortness Of Breath/Wheezing Captopril 6.25 mg PO BID Carvedilol 0.5 tablet PO BID - Follow Up or Referral - Forms/Instructions
--- NOTE | 2016-12-15 12:53 | Anesthesia Post-Op ---
Anesthesia Post OP - Post Ansesthetic Evaluation Patient seen in post op: Yes Resp: within normal limits CV: within normal limits Mental: within normal limits Temp: within normal limits Ozlr-[id number]-Nyrbezvgu: within normal limits Nausea and Vomiting: within normal limits Pain: within normal limits
[2016-12-15] MEDS: CARVEDILOL 6.25 MG TABLET PO SCH ×2 (13:47→20:53)
[2016-12-15] MEDS: LISINOPRIL 2.5 MG TABLET PO SCH (13:47)
--- NOTE | 2016-12-15 14:04 | Hospitalist Progress Note ---
Assessment and Plan (1) Acute blood loss anemia Status: Acute Assessment and plan: Patient is status post EGD and colonoscopy as mentioned above and are negative except for the has been is negative except for the ileocecal valve ulcer pending pathology. Will monitor hemoglobin hematocrit. I have explained the patient if he remains stable will be discharged tomorrow morning. Current Visit: Yes (2) Coronary artery disease Status: Chronic Assessment and plan: Continue to have no chest pain and by cardiology for elevated troponin and believes from severe anemia. Will discuss with a cart in GI about antiplatelet therapy once he go home Current Visit: Yes (3) Hypertension Status: Chronic Assessment and plan: He has hypertension with the cardiomyopathy blood pressures fluctuating I will increase the dose of lisinopril and watch for the tolerance Current Visit: Yes (4) Ischemic cardiomyopathy Status: Chronic Assessment and plan: Patient has ischemic cardiomyopathy with reduced left ventricle ejection fraction. He is compensated clinically he is on beta-ky and I will increase the dose of lisinopril to 5 mg Current Visit: Yes (5) COPD (chronic obstructive pulmonary disease) Status: Chronic Assessment and plan: No acute symptom and has been a stable Current Visit: Yes Hospitalist: Subjective Interval history: Mr. Salomon is a 76 year old male with known history of coronary artery disease status post MT with PCI, CVA, hypertension, hyperlipidemia, COPD and ischemic cardiomyopathy. His ejection fraction was 40-50% on echo in 2014. Echo this admission revealed ejection fraction 35-40%.. He was admitted on 12/09/2016 with a short of breath for 3 weeks. He had mild elevated troponin but noted to have a significant anemia. He was transfused 2 packed RBC. Cardiology has seen and believe patient has mild elevated troponin due to severe anemia. His hemoglobin was 5.1 on admission. He reported some dark stool but no overt rectal bleed. GI has seen patient and he underwent EGD yesterday which reported to have mild gastritis in digital bulb lesion ? Ampullary. Colonoscopy was recommended and performed today and noted to have Ileocecal valve ulcer-otherwise normal colonoscopy. Biopsy was done and pending. Patient is asymptomatic otherwise. Exam - Constitutional Vitals: Period Temp Pulse Resp BP Sys/Ibrahim Pulse Ox Last 24 Hr 98.7 F-99.5 F 66-93 16-20 119-161/63-78 94-100 General appearance: no acute distress - Respiratory Respiratory exam: Present: clear to auscultation bilaterally. Absent: rales, rhonchi - Cardiovascular Cardiovascular exam: Present: regular rate and rhythm. Absent: tachycardia - GI/Abdominal GI/Abdominal exam: Present: normal bowel sounds, soft. Absent: distended, tenderness - Extremities Exam Extremities exam: Absent: edema - Neurological Exam Neurological exam: Present: alert, oriented X3 Results - Labs CBC & BMP: 12/15/16 03:49 12/15/16 03:49 Lab Results: I have reviewed the past 24 hour labs Quality Measures - VTE Contraindication to Pharmacological VTE Prophylaxis: High Risk of Bleeding
[2016-12-15] MEDS ORDERED: LISINOPRIL 2.5 MG TABLET PO ONE (14:30)
[2016-12-15] MEDS: ATORVASTATIN 20 MG TABLET PO SCH (20:53)
[2016-12-15] MEDS: cefTRIAXone 1,000 MG in SODIUM CHLORIDE 0.9% 100 ML IV SCH (20:53)
[2016-12-16 05:59] LABS: Basophils % 0.2 % (0.0-0.8); Eosinophils # 0.3 10*3/uL (0.0-0.87); Eosinophils % 6.2 % (0.00-10.9); Hematocrit 31.9 VOL% (42.0-52.0); Hemoglobin 9.3 GM/DL (14.0-18.0); Immature Granulocytes % 0.2 %; Immature Granulocytes Absolute 0.01 #; Lymphocytes # 1.4 10*3/uL (1.4-4.0); Lymphocytes % 25.1 % (21.2-54.2); Mean Corpuscular HGB Conc 29.2 GM/DL (32-36); Mean Corpuscular Hemoglobin 21 PG (27-34); Mean Corpuscular Volume 72.3 FL (87-102); Mean Platelet Volume 10.6 FL (9.6-12.0); Monocytes # 0.5 10*3/uL (0.11-0.8); Monocytes % 8.4 % (1.7-12.7); Neutrophils # 3.3 10*3/uL (1.4-7.4); Neutrophils % 59.9 % (38.7-73.9); Platelet Count 246 T/CUMM (130-400); Red Blood Count 4.41 MC/CUMM (3.8-5.5); Red Cell Distribution Width 28.3 % (9.3-17.3); White Blood Count 5.5 T/CUMM (4-12)
[2016-12-16 06:22] LABS: Calcium 7.8 MG/DL (8.5-10.1); Magnesium 2.5 MG/DL (1.8-2.4)
[2016-12-16 06:24] LABS: Hypochromasia 1+; Microcytosis 1+; Ovalocytes Slight
[2016-12-16 06:25] LABS: Platelet Estimate Normal
[2016-12-16] MEDS: ALBUTEROL/IPRATROPIUM 3 ML NEB RESP TX SCH ×2 (07:15→14:48)
[2016-12-16] MEDS ORDERED: LISINOPRIL 5 MG TABLET PO SCH (09:00)
--- NOTE | 2016-12-16 10:12 | Gastrointestinal Progress Note ---
Assessment and Plan (1) Acute blood loss anemia Status: Acute Assessment and plan: 12/16-hemoglobin 9.3. No overt bleeding. Colonoscopy findings noted with pathology pending. Tolerating diet. Discussed iron supplementation as well as dietary sources of iron. Plan an addendum to followed by Dr. Alejo. 12/11-hemoglobin 7.4. No reports of overt bleeding. Continue to monitor H&H. Advance to full liquid diet. Stools for occult blood still pending. Plan for tentative EGD on Wednesday to further evaluate. Plan an addendum to followed by Dr. Alejo. 12/10-Hgb holding at 8 w/o overt bleeding. No reports of abd pain. Plavix continues to be held with plans for upper endoscopy next week. Plan and addendum to follow by Dr Alejo. 12/09-Findings on admission of SOB and weakness with hgb 5.1, now 8.6 following 2 units PRBC. Last endoscopy in 2006. No GI complaints other than contradictory reports of melena/hematochezia on admission denied at this time by patient. Obtain stool studies and check serial HH. Plan for upper endoscopy when cleared from cardiac standpoint. Plan and addendum to follow by Dr Alejo. Current Visit: Yes Gastroenterology - PN: Subj Interval history: CC: GI bleed Patient is seen awake alert sitting up in bed. States he had an uneventful night. Colonoscopy findings noted with ileocecal valve ulcer with biopsy pending. No other acute findings noted. Abdomen is soft, nontender. He is tolerating his diet well. Denies any nausea or vomiting. Hemoglobin is down very slightly at 9.3. Denies any overt bleeding. ROS: Denies shortness of breath or chest Exam (Progress Note) - Constitutional Vitals: Period Temp Pulse Resp BP Sys/Ibrahim Pulse Ox Last 24 Hr 98.3 F-99.6 F 69-93 16-19 121-161/51-78 92-100 General appearance: normal weight, no acute distress - Head Head exam: Present: normal inspection, normocephalic - Eye Eye exam: Present: other (Lids and conjunctivae unremarkable). Absent: scleral icterus - ENT ENT exam: Present: normal exam, normal oropharynx - Neck Neck exam: Present: normal inspection - Respiratory Respiratory exam: Present: clear to auscultation bilaterally. Absent: rales, rhonchi, wheezes - Cardiovascular Cardiovascular exam: Present: regular rate and rhythm. Absent: diastolic murmur , JVD, systolic murmur - GI/Abdominal GI/Abdominal exam: Present: normal bowel sounds, soft. Absent: ascites, distended, mass, organomegaly, tenderness - Extremities Exam Extremities exam: Present: normal inspection, full ROM - Back Exam Back exam: Present: normal inspection - Neurological Exam Neurological exam: Present: alert, oriented X3 - Psychiatric Psychiatric exam: Present: normal affect, normal mood - Skin Skin exam: Present: normal color, warm, dry Results - Labs CBC & BMP: 12/16/16 04:57 12/16/16 04:57 Lab Results: I have reviewed the past 24 hour labs
[2016-12-16] MEDS: CARVEDILOL 6.25 MG TABLET PO SCH (10:55)
[2016-12-16] MEDS: PANTOPRAZOLE 40 MG VIAL IV SCH (10:56)
[2016-12-16 11:18] VITALS: BP 135/69
--- NOTE | 2016-12-16 12:34 | Discharge Summary ---
Hospital Course - Hospital Course Hospital Course: Mr. Salomon is a 76 year old male with known history of coronary artery disease status post [place] with PCI, CVA, hypertension, hyperlipidemia, COPD and ischemic cardiomyopathy. His ejection fraction was 40-50% on echo in 2014. Echo this admission revealed ejection fraction 35-40%.. He was admitted on 12/09/2016 with a short of breath for 3 weeks. He had mild elevated troponin but noted to have a significant anemia. He was transfused 2 packed RBC. Cardiology has seen and believe patient has mild elevated troponin due to severe anemia. He is followed by Dr. Samano and had been on Plavix. It was discontinued . His hemoglobin was 5.1 on admission and had positive stool Hemoccult. He reported some dark stool but no overt rectal bleed. GI has seen patient and he underwent EGD 12/14/2016 which reported to have mild gastritis in digital bulb lesion ? Ampullary. Colonoscopy was recommended and performed 12/15/2016 and noted to have Ileocecal valve ulcer-otherwise normal colonoscopy. Biopsy was done and pending. Patient is asymptomatic otherwise. His hemoglobin was 9.3 today he is ambulatory and not having any shortness of breath. I will start him on ferrous sulfate 325 mg twice daily and he need to follow-up with Dr. emanuel to discuss about the future into the platelet therapy I will do low- dose enteric-coated aspirin which she can buy [id number]. I will also give Protonix daily for GI protection Diagnosis - Discharge Diagnosis (1) Acute blood loss anemia Status: Acute (2) Coronary artery disease Status: Chronic (3) Hypertension Status: Chronic (4) Ischemic cardiomyopathy Status: Chronic (5) COPD (chronic obstructive pulmonary disease) Status: Chronic Discharge Plan - Discharge Data Disposition: Disch To Home/Self Care Discharge Diet: heart healthy Activity: resume usual activities as tolerated - Discharge Medications New Aspirin [Aspirin EC] 81 mg PO DAILY #30 tablet. Pantoprazole Tab [Protonix Tab] 40 mg PO DAILY #30 tablet Ferrous Sulfate Tab [Feosol Original Tab] 325 mg PO BID #60 tablet Lisinopril [Prinivil] 5 mg PO DAILY #30 tablet Continue Atorvastatin [Lipitor] 20 mg PO BEDTIME #30 tablet Albuterol Inhaler [Proventil Inhaler] 2 puff INH Q6H PRN PRN Reason: Shortness Of Breath/Wheezing Carvedilol 0.5 tablet PO BID Discontinued Clopidogrel [Plavix] 75 mg PO DAILY #30 tablet Captopril 6.25 mg PO BID - Follow Up or Referral Follow Up: Hero Samano MD [Physician] - Nino Alejo MD [Primary Care Provider] - - Forms/Instructions Exam - Constitutional Vitals: Period Temp Pulse Resp BP Sys/Ibrahim Pulse Ox Last 24 Hr 98.3 F-99.7 F 69-91 16-20 121-160/51-78 92-100 General appearance: no acute distress - Respiratory Respiratory exam: Present: clear to auscultation bilaterally. Absent: rales, rhonchi - Cardiovascular Cardiovascular exam: Present: regular rate and rhythm. Absent: tachycardia - GI/Abdominal GI/Abdominal exam: Present: normal bowel sounds, soft. Absent: distended, tenderness - Extremities Exam Extremities exam: Absent: edema - Neurological Exam Neurological exam: Present: alert, oriented X3 Discharge Results Procedures and tests throughout hospitalization: Pending Orders 12/13/16 12:40 Occult Blood, Stool Routine 12/17/16 04:00 BMP w/ Mg [Basic Metabolic Panel w/Mg] IN AM CBC [Comp Blood Count Auto Diff] IN AM 12/18/16 04:00 BMP w/ Mg [Basic Metabolic Panel w/Mg] IN AM CBC [Comp Blood Count Auto Diff] IN AM Labs on day of discharge: Labs from last 24 hours 12/16/16 12/16/16 04:57 04:57 WBC 5.5 RBC 4.41 Hgb 9.3 L Hct 31.9 L MCV 72.3 L MCH 21 L MCHC 29.2 L RDW 28.3 H Plt Count 246 MPV 10.6 Neut % (Auto) 59.9 Lymph % (Auto) 25.1 [place] % (Auto) 8.4 Eos % (Auto) 6.2 Baso % (Auto) 0.2 Neut # (Auto) 3.3 Lymph # (Auto) 1.4 [place] # (Auto) 0.5 Eos # (Auto) 0.3 Baso # (Auto) 0.0 Immature Gran % 0.2 Nucleated RBC % 0.0 Immature Gran # 0.01 Nucleated RBCs # 0.00 Platelet Estimate Normal Hypochromasia 1+ Microcytosis 1+ Ovalocytes Slight Morphology Comment Sodium 143 Potassium 4.0 Chloride 108 H Carbon Dioxide 28 Anion Gap 11.0 BUN 11 Creatinine 0.90 GFR Calculation 94 BUN/Creatinine Ratio 12.00 Glucose 88 Calculated Osmolality 282.0 Calcium 7.8 L Magnesium 2.5 H DS: Provider Date of admission: 12/08/16 18:36 Primary care physician: Nino Howard Attending physician on admission: Emmanuel Moran MD Consults: 12/08/16 19:47 Consult to Dietitian [CONS] Routine Reason for Dietitian: Dietary Consult 12/08/16 20:55 Consult to Physician [CONS] Routine Comment: Consulting Provider: 12/09/16 02:16 Consult to Physician [CONS] Routine Comment: GI bleed Consulting Provider: Nino Alejo When should Consulting Provider be notified: In am Consult to Specialist Group: Gastroenterology When should Consulting Provider be notified: In am Person Notified: ERIC Date Notified: 12/09/16 Time Notified: 08:46 12/09/16 02:31 Consult to Physician [CONS] Routine Comment: Consulting Provider: Cardiology - [facility] Consult to Specialist Group: Cardiology When should Consulting Provider be notified: In am Person Notified: [facility] Scheduling Date Notified: 12/09/16 Time Notified: 08:44 Discharging clinician: Jacky Srinivasan MD
--- NOTE | 2016-12-16 12:50 | Pathology Report from [facility] ---
[facility] ACCESSION # : [id number] PATIENT NAME : Shelly De La Torre ORDERING DR : ARRON HERRERA MD CLINICAL HX: Blood in stool, iron deficiency POST-OP DX: Same SPECIMEN INFO: Ileocecal valve GROSS DESCRIPTION: Received in formalin labeled SHELLY DE LA TORRE & #1 is a 0.5 x 0.2 cm [place] mucosal tissue fragment submitted in one cassette. DIAGNOSIS FOR SHELLY DE LA TORRE: ILEOCECAL VALVE BIOPSY: Tubular adenoma. COLLECTED DATE: 12/15/2016 [facility] REPORT DATE: 12/16/2016 ELECTRONICALLY SIGNED BY: Maine Rose M.D. 12/16/2016 - 9:29:38 [facility]
[2016-12-16] MEDS ORDERED: FERROUS SULFATE 325 MG TABLET PO SCH (21:00)
--- NOTE | 2016-12-24 08:51 | Physician Query Form ---
CLICK EDIT DOCUMENT TO SELECT QUERY ANSWER --> OK --> SIGN Maya Sam RN Clinical Time Study Observer W) [phone] (f) [phone] [email or web address]: Make your selection(s) from the choices in EACH section by typing an "x" and enter comments in the comment section. Please use your independent medical judgment in providing your response. This request does not imply that any particular answer is desired or expected. CLINICAL INDICATORS: (Providers should not edit this section) Pathology Findings: Tubular adenoma Pt. had c-scope that showed an ileocecal valve ulcer with biopsies taken. Pathology report showed "tubular adenoma". Abnormal Pathology findings are not reported unless an authorized provider indicates their clinical significance Please select the best choice: (X ) I agree with the Pathology findings ( ) I disagree with the Pathology findings ( ) No clinical significance ( ) Other/clarification of findings, please specify: ( ) Clinically unable to determine COMMENTS: PLEASE ALSO DOCUMENT RESPONSE IN PROGRESS NOTES AND/OR DISCHARGE SUMMARY Use of terms such as suspected, likely, or probable (associated with a specific diagnosis that is being evaluated, monitored, or treated as if it exists) are acceptable and can be restated in the discharge summary if not ruled out. [facility]
--- NOTE | 2016-12-24 08:55 | Physician Query Form ---
CLICK EDIT DOCUMENT TO SELECT QUERY ANSWER --> OK --> SIGN Maya Sam RN Clinical Rotary Bar Operator W) [phone] (f) [phone] [email or web address] PROVIDERS: Make your selection(s) from the choices in EACH section by typing an "x" and enter comments in the comment section. Please use your independent medical judgment in providing your response. This request does not imply that any particular answer is desired or expected. CLINICAL INDICATORS: (Providers should not edit this section) Pt. admitted with acute blood loss anemia. Pathology from ileocecal ulcer biopsy showed tubular adenoma. Based on the above, could you clarify the appropriate diagnosis, if significant , that supports the above abnormalities and additional evaluation, monitoring, and/or treatment rendered: (X ) Acute blood loss anemia due to tubular adenoma ( ) Acute blood loss anemia not due to tubular adenoma ( ) Acute blood loss anemia due to ( ) Other, please specify: ( ) Clinically unable to determine COMMENTS: PLEASE ALSO DOCUMENT RESPONSE IN PROGRESS NOTES AND/OR DISCHARGE SUMMARY Use of terms such as suspected, likely, or probable (associated with a specific diagnosis that is being evaluated, monitored, or treated as if it exists) are acceptable and can be restated in the discharge summary if not ruled out. [facility]
== END 2016-12-16 15:52 | disposition home or self-care (01) | DRG 394 ==
LOC: EDUNIT# → EDBD → N.ED 15:56 → SUATTDRO 18:36 → N.EDINP 18:36 → N.ICU 19:20 → N.3E 12-10 13:36
PROVIDERS: ADMIT Family Medicine; ATTEND Internal Medicine
PROC: COLONBX (2016-12-15 13:05)

== ENCOUNTER 2017-11-22 14:55 | Inpatient (IN) ==
[2017-11-22 15:47] LABS: Basophils % 0.2 % (0.0-0.8); Eosinophils # 1.1 10*3/uL (0.0-0.87); Eosinophils % 18.1 % (0.00-10.9); Hematocrit 41.5 VOL% (42.0-52.0); Hemoglobin 13.4 GM/DL (14.0-18.0); Immature Granulocytes % 0.2 %; Immature Granulocytes Absolute 0.01 #; Lymphocytes # 1.7 10*3/uL (1.4-4.0); Lymphocytes % 29.5 % (21.2-54.2); Mean Corpuscular HGB Conc 32.3 GM/DL (32-36); Mean Corpuscular Hemoglobin 31 PG (27-34); Mean Corpuscular Volume 96.5 FL (87-102); Mean Platelet Volume 11.1 FL (9.6-12.0); Monocytes # 0.4 10*3/uL (0.11-0.8); Monocytes % 7.5 % (1.7-12.7); Neutrophils # 2.6 10*3/uL (1.4-7.4); Neutrophils % 44.5 % (38.7-73.9); Platelet Count 149 T/CUMM (130-400); Red Cell Distribution Width 13.2 % (9.3-17.3); White Blood Count 5.9 T/CUMM (4-12)
[2017-11-22 15:56] LABS: INR 1.1; Partial Thromboplastin Time 27.7 SECS (0-40)
[2017-11-22] MEDS ORDERED: ALBUTEROL NEB SOLN 5 MG/ML 20 ML/BOTTLE RESP TX SCH (16:00)
[2017-11-22 16:09] LABS: Alanine Aminotransferase 41 U/L (16-61); Albumin 3.5 G/DL (3.4-5.0); Alkaline Phosphatase 78 U/L (45-117); Aspartate Amino Transferase 19 U/L (0-37); Bilirubin,Total < 0.39 MG/DL (0.2-1.0); Blood Urea Nitrogen 22 MG/DL (7-18); Calcium 8.5 MG/DL (8.5-10.1); Glucose 110 MG/DL (74-106); Osmolality,Calculated 282.4 MOS/KG (273-304); Potassium 4.3 MMOL/L (3.5-5.1); Sodium 140 MMOL/L (136-145); Total Protein 7.2 G/DL (6.4-8.3); Troponin I Only < 0.015 NG/ML (0.00-0.045)
[2017-11-22] MEDS ORDERED: ALBUTEROL 2.5 MG/3 ML NEB RESP TX PRN (18:06)
[2017-11-22 18:09] LABS: Eosinophils 16 % (0-10); Lymphocytes 34 % (20-55); Platelet Estimate Normal; Segmented Neutrophils 44 % (50-85); Total Cells Counted 100
[2017-11-22] MEDS ORDERED: LISINOPRIL 10 MG TABLET PO STA (18:36)
[2017-11-22] MEDS ORDERED: LISINOPRIL 10 MG TABLET ONE (18:51)
[2017-11-22] MEDS: ALBUTEROL/IPRATROPIUM 3 ML NEB RESP TX SCH (18:54)
[2017-11-22] MEDS ORDERED: CARBAMIDE PEROXIDE 6.5% OTIC SOLN 15 ML BOTTLE BOTH EARS SCH (21:00)
[2017-11-22] MEDS: ATORVASTATIN 20 MG TABLET PO SCH (21:11)
[2017-11-22] MEDS: CARVEDILOL 6.25 MG TABLET PO SCH (21:12)
[2017-11-22] MEDS: FERROUS SULFATE 325 MG TABLET PO SCH (21:12)
[2017-11-22] MEDS: methylPREDNISolone SOD SUC 40 MG/1 ML VIAL IV SCH (21:17)
[2017-11-23] MEDS: ALBUTEROL/IPRATROPIUM 3 ML NEB RESP TX SCH ×4 (00:21→19:29)
[2017-11-23] MEDS: methylPREDNISolone SOD SUC 40 MG/1 ML VIAL IV SCH ×3 (04:35→21:18)
[2017-11-23 06:28] LABS: Eosinophils % 0.2 % (0.00-10.9); Hematocrit 41.2 VOL% (42.0-52.0); Hemoglobin 13.7 GM/DL (14.0-18.0); Immature Granulocytes % 0.2 %; Immature Granulocytes Absolute 0.01 #; Lymphocytes # 0.9 10*3/uL (1.4-4.0); Mean Corpuscular HGB Conc 33.3 GM/DL (32-36); Mean Corpuscular Hemoglobin 31 PG (27-34); Mean Platelet Volume 11.2 FL (9.6-12.0); Monocytes # 0.1 10*3/uL (0.11-0.8); Monocytes % 1.2 % (1.7-12.7); Neutrophils # 3.1 10*3/uL (1.4-7.4); Neutrophils % 77.4 % (38.7-73.9); Platelet Count 140 T/CUMM (130-400); Red Blood Count 4.43 MC/CUMM (3.8-5.5); Red Cell Distribution Width 13.1 % (9.3-17.3)
[2017-11-23 07:13] LABS: Albumin 3.2 G/DL (3.4-5.0); Bilirubin,Total 0.5 MG/DL (0.2-1.0); Calcium 8.7 MG/DL (8.5-10.1); Osmolality,Calculated 282.5 MOS/KG (273-304); Potassium 4.9 MMOL/L (3.5-5.1); Total Protein 6.8 G/DL (6.4-8.3)
[2017-11-23] MEDS ORDERED: LISINOPRIL 5 MG TABLET PO SCH (09:00)
[2017-11-23] MEDS: CARVEDILOL 6.25 MG TABLET PO SCH ×2 (09:12→21:17)
[2017-11-23] MEDS: LISINOPRIL 10 MG TABLET PO SCH (09:12)
[2017-11-23] MEDS: PANTOPRAZOLE 40 MG TABLET PO SCH (09:12)
[2017-11-23] MEDS: CEFEPIME 1,000 MG in SYRINGE 1 EACH IV SCH ×2 (09:12→21:20)
[2017-11-23] MEDS: FERROUS SULFATE 325 MG TABLET PO SCH ×2 (09:12→21:18)
[2017-11-23] MEDS: ASPIRIN EC 81 MG TABLET PO SCH (09:12)
[2017-11-23] MEDS: ACETAMINOPHEN 325 MG TABLET PO PRN (15:16)
[2017-11-23] MEDS: ATORVASTATIN 20 MG TABLET PO SCH (21:17)
[2017-11-24] MEDS: ALBUTEROL/IPRATROPIUM 3 ML NEB RESP TX SCH ×4 (00:34→19:23)
[2017-11-24] MEDS: methylPREDNISolone SOD SUC 40 MG/1 ML VIAL IV SCH ×3 (05:52→20:26)
[2017-11-24] MEDS: FERROUS SULFATE 325 MG TABLET PO SCH ×2 (08:33→20:25)
[2017-11-24] MEDS: LISINOPRIL 10 MG TABLET PO SCH (08:33)
[2017-11-24] MEDS: ASPIRIN EC 81 MG TABLET PO SCH (08:33)
[2017-11-24] MEDS: CEFEPIME 1,000 MG in SYRINGE 1 EACH IV SCH ×2 (08:34→20:25)
[2017-11-24] MEDS: PANTOPRAZOLE 40 MG TABLET PO SCH (08:34)
[2017-11-24] MEDS: CARVEDILOL 6.25 MG TABLET PO SCH ×2 (08:34→20:25)
[2017-11-24] MEDS: DICLOFENAC 1% GEL 100 GM TUBE TOP SCH ×2 (14:07→20:33)
[2017-11-24] MEDS: ATORVASTATIN 20 MG TABLET PO SCH (20:25)
[2017-11-25] MEDS: ALBUTEROL/IPRATROPIUM 3 ML NEB RESP TX SCH ×4 (02:07→19:13)
[2017-11-25] MEDS: methylPREDNISolone SOD SUC 40 MG/1 ML VIAL IV SCH ×3 (04:43→20:42)
[2017-11-25] MEDS: LISINOPRIL 10 MG TABLET PO SCH (09:51)
[2017-11-25] MEDS: FERROUS SULFATE 325 MG TABLET PO SCH ×2 (09:51→20:41)
[2017-11-25] MEDS: CEFEPIME 1,000 MG in SYRINGE 1 EACH IV SCH ×2 (09:51→20:44)
[2017-11-25] MEDS: DICLOFENAC 1% GEL 100 GM TUBE TOP SCH ×3 (09:51→20:42)
[2017-11-25] MEDS: ASPIRIN EC 81 MG TABLET PO SCH (09:51)
[2017-11-25] MEDS: CARVEDILOL 6.25 MG TABLET PO SCH ×2 (09:51→20:40)
[2017-11-25] MEDS: PANTOPRAZOLE 40 MG TABLET PO SCH (09:51)
[2017-11-25] MEDS: DORNASE ALFA 2.5 MG/2.5 ML VIAL RESP TX SCH ×2 (14:06→19:14)
[2017-11-25] MEDS: ACETAMINOPHEN 325 MG TABLET PO PRN (19:44)
[2017-11-25] MEDS: ATORVASTATIN 20 MG TABLET PO SCH (20:41)
[2017-11-26] MEDS: ALBUTEROL/IPRATROPIUM 3 ML NEB RESP TX SCH ×4 (00:12→18:58)
[2017-11-26] MEDS: methylPREDNISolone SOD SUC 40 MG/1 ML VIAL IV SCH ×4 (02:10→20:50)
[2017-11-26] MEDS: DORNASE ALFA 2.5 MG/2.5 ML VIAL RESP TX SCH ×2 (07:21→18:58)
[2017-11-26] MEDS: LISINOPRIL 10 MG TABLET PO SCH (09:23)
[2017-11-26] MEDS: PANTOPRAZOLE 40 MG TABLET PO SCH (09:23)
[2017-11-26] MEDS: FERROUS SULFATE 325 MG TABLET PO SCH ×2 (09:23→20:15)
[2017-11-26] MEDS: ASPIRIN EC 81 MG TABLET PO SCH (09:23)
[2017-11-26] MEDS: CEFEPIME 1,000 MG in SYRINGE 1 EACH IV SCH ×2 (09:23→20:50)
[2017-11-26] MEDS: CARVEDILOL 6.25 MG TABLET PO SCH ×2 (09:24→20:15)
[2017-11-26] MEDS: DICLOFENAC 1% GEL 100 GM TUBE TOP SCH ×3 (09:25→20:16)
[2017-11-26] MEDS: ACETAMINOPHEN 325 MG TABLET PO PRN (16:15)
[2017-11-26] MEDS: ATORVASTATIN 20 MG TABLET PO SCH (20:15)
[2017-11-27] MEDS: ALBUTEROL/IPRATROPIUM 3 ML NEB RESP TX SCH ×4 (00:35→19:39)
[2017-11-27] MEDS: methylPREDNISolone SOD SUC 40 MG/1 ML VIAL IV SCH ×4 (02:38→20:37)
[2017-11-27] MEDS: DORNASE ALFA 2.5 MG/2.5 ML VIAL RESP TX SCH ×2 (08:34→19:39)
[2017-11-27] MEDS: FERROUS SULFATE 325 MG TABLET PO SCH ×2 (09:24→20:14)
[2017-11-27] MEDS: CEFEPIME 1,000 MG in SYRINGE 1 EACH IV SCH ×2 (09:24→20:37)
[2017-11-27] MEDS: PANTOPRAZOLE 40 MG TABLET PO SCH (09:24)
[2017-11-27] MEDS: ASPIRIN EC 81 MG TABLET PO SCH (09:24)
[2017-11-27] MEDS: LISINOPRIL 10 MG TABLET PO SCH (09:24)
[2017-11-27] MEDS: CARVEDILOL 6.25 MG TABLET PO SCH ×2 (09:24→20:14)
[2017-11-27] MEDS: DICLOFENAC 1% GEL 100 GM TUBE TOP SCH ×3 (09:28→20:17)
[2017-11-27] MEDS: ATORVASTATIN 20 MG TABLET PO SCH (20:14)
[2017-11-28] MEDS: ALBUTEROL/IPRATROPIUM 3 ML NEB RESP TX SCH ×4 (01:04→19:48)
[2017-11-28] MEDS: methylPREDNISolone SOD SUC 40 MG/1 ML VIAL IV SCH ×4 (03:06→21:37)
[2017-11-28] MEDS: DORNASE ALFA 2.5 MG/2.5 ML VIAL RESP TX SCH (07:09)
[2017-11-28] MEDS: FERROUS SULFATE 325 MG TABLET PO SCH ×2 (09:54→20:13)
[2017-11-28] MEDS: PANTOPRAZOLE 40 MG TABLET PO SCH (09:54)
[2017-11-28] MEDS: ASPIRIN EC 81 MG TABLET PO SCH (09:54)
[2017-11-28] MEDS: LISINOPRIL 10 MG TABLET PO SCH (09:54)
[2017-11-28] MEDS: LEVOFLOXACIN 750 MG TABLET PO SCH (09:55)
[2017-11-28] MEDS: DICLOFENAC 1% GEL 100 GM TUBE TOP SCH ×3 (11:26→20:14)
[2017-11-28] MEDS: CARVEDILOL 6.25 MG TABLET PO SCH ×2 (12:48→20:13)
[2017-11-28] MEDS: ATORVASTATIN 20 MG TABLET PO SCH (20:13)
[2017-11-29] MEDS: ALBUTEROL/IPRATROPIUM 3 ML NEB RESP TX SCH ×4 (00:14→19:29)
[2017-11-29] MEDS: methylPREDNISolone SOD SUC 40 MG/1 ML VIAL IV SCH ×2 (02:57→08:43)
[2017-11-29] MEDS: ASPIRIN EC 81 MG TABLET PO SCH (08:41)
[2017-11-29] MEDS: LISINOPRIL 10 MG TABLET PO SCH (08:41)
[2017-11-29] MEDS: LEVOFLOXACIN 750 MG TABLET PO SCH (08:41)
[2017-11-29] MEDS: PANTOPRAZOLE 40 MG TABLET PO SCH (08:42)
[2017-11-29] MEDS: CARVEDILOL 6.25 MG TABLET PO SCH ×2 (08:42→21:13)
[2017-11-29] MEDS: FERROUS SULFATE 325 MG TABLET PO SCH ×2 (08:42→21:12)
[2017-11-29] MEDS: DICLOFENAC 1% GEL 100 GM TUBE TOP SCH ×3 (08:45→21:13)
[2017-11-29] MEDS: FLUCONAZOLE 100 MG TABLET PO SCH (10:53)
[2017-11-29] MEDS ORDERED: methylPREDNISolone SOD SUC 40 MG/1 ML VIAL IV SCH (21:00)
[2017-11-29] MEDS: ATORVASTATIN 20 MG TABLET PO SCH (21:12)
[2017-11-29] MEDS: ACETAMINOPHEN 325 MG TABLET PO PRN (21:16)
[2017-11-30] MEDS: ALBUTEROL/IPRATROPIUM 3 ML NEB RESP TX SCH ×3 (00:53→13:20)
[2017-11-30] MEDS ORDERED: predniSONE 20 MG TABLET PO SCH (09:00)
[2017-11-30] MEDS: LISINOPRIL 10 MG TABLET PO SCH (09:39)
[2017-11-30] MEDS: PANTOPRAZOLE 40 MG TABLET PO SCH (09:39)
[2017-11-30] MEDS: CARVEDILOL 6.25 MG TABLET PO SCH (09:39)
[2017-11-30] MEDS: FERROUS SULFATE 325 MG TABLET PO SCH (09:39)
[2017-11-30] MEDS: LEVOFLOXACIN 750 MG TABLET PO SCH (09:39)
[2017-11-30] MEDS: DICLOFENAC 1% GEL 100 GM TUBE TOP SCH (09:40)
[2017-11-30] MEDS: ASPIRIN EC 81 MG TABLET PO SCH (09:40)
[2017-11-30] MEDS: FLUCONAZOLE 100 MG TABLET PO SCH (09:40)
[2017-11-30 12:20] VITALS: BP 184/79
== END 2017-11-30 15:00 | disposition home or self-care (01) | DRG 190 ==
LOC: N.ED 14:55 → N.EDINP 18:03 → SUATTDRO 18:03 → N.EDINP 19:37 → N.2E 20:06
PROVIDERS: ADMIT Internal Medicine Geriatric Medicine; ATTEND Internal Medicine

== ENCOUNTER 2018-06-16 07:14 | Inpatient (IN) ==
[2018-06-16] MEDS ORDERED: ALBUTEROL/IPRATROPIUM 3 ML NEB RESP TX STA (07:44)
[2018-06-16] MEDS ORDERED: methylPREDNISolone SOD SUC 125 MG/2 ML VIAL IV STA (07:45)
[2018-06-16 07:54] LABS: Basophils % 0.1 % (0.0-0.8); Eosinophils % 0.1 % (0.00-10.9); Hematocrit 43.9 VOL% (42.0-52.0); Hemoglobin 14.2 GM/DL (14.0-18.0); Immature Granulocytes % 0.2 %; Immature Granulocytes Absolute 0.02 #; Lymphocytes # 1.9 10*3/uL (1.4-4.0); Mean Corpuscular HGB Conc 32.3 GM/DL (32-36); Mean Corpuscular Hemoglobin 30 PG (27-34); Mean Platelet Volume 10.1 FL (9.6-12.0); Monocytes # 0.5 10*3/uL (0.11-0.8); Monocytes % 5.7 % (1.7-12.7); Neutrophils # 6.7 10*3/uL (1.4-7.4); Neutrophils % 72.9 % (38.7-73.9); Platelet Count 179 T/CUMM (130-400); Red Blood Count 4.72 MC/CUMM (3.8-5.5); Red Cell Distribution Width 12.9 % (9.3-17.3); White Blood Count 9.2 T/CUMM (4-12)
[2018-06-16] MEDS ORDERED: DOXYCYCLINE HYCLATE 100 MG CAPSULE PO STA (08:10)
[2018-06-16 08:13] LABS: Albumin 3.9 G/DL (3.4-5.0); Bilirubin,Total 0.6 MG/DL (0.2-1.0); Calcium 8.7 MG/DL (8.5-10.1); Potassium 4.4 MMOL/L (3.5-5.1); Total Protein 8.3 G/DL (6.4-8.3)
[2018-06-16] MEDS ORDERED: ALBUTEROL 2.5 MG/3 ML NEB RESP TX PRN (08:57)
[2018-06-16] MEDS ORDERED: ONDANSETRON 4 MG/2 ML VIAL IV PRN (08:57)
[2018-06-16] MEDS ORDERED: MORPHINE 4 MG/1 ML VIAL IV PRN (08:57)
[2018-06-16] MEDS ORDERED: diphenhydrAMINE CAP 25 MG CAPSULE PO PRN (08:57)
[2018-06-16] MEDS ORDERED: NICOTINE 21 MG/24 HR PATCH TRANSDERM PRN (08:57)
[2018-06-16] MEDS ORDERED: DOCUSATE SODIUM 100 MG CAPSULE PO PRN (08:57)
[2018-06-16] MEDS ORDERED: CARVEDILOL 6.25 MG TABLET PO SCH (09:30)
[2018-06-16] MEDS ORDERED: cefTRIAXone 1,000 MG in SYRINGE 1 EACH IV SCH (10:00)
[2018-06-16] MEDS: PANTOPRAZOLE 40 MG TABLET PO SCH (11:13)
[2018-06-16] MEDS: AZITHROMYCIN 250 MG TABLET PO SCH (11:14)
[2018-06-16] MEDS: LISINOPRIL 5 MG TABLET PO SCH (11:14)
[2018-06-16] MEDS: ASPIRIN EC 81 MG TABLET PO SCH (11:14)
[2018-06-16] MEDS: BUDESONIDE/FORMOTEROL 160-4.5 INHALER 6 GM INH SCH ×2 (11:14→20:52)
[2018-06-16] MEDS ORDERED: VANCOMYCIN INJ 750 MG in SODIUM CHLORIDE 0.9% 250 ML IV SCH (12:00)
[2018-06-16] MEDS: ENOXAPARIN 40 MG/0.4 ML SYRINGE SUBCUT SCH (12:09)
[2018-06-16] MEDS: methylPREDNISolone SOD SUC 40 MG/1 ML VIAL IV SCH ×2 (12:10→18:51)
[2018-06-16] MEDS: ALBUTEROL/IPRATROPIUM 3 ML NEB RESP TX SCH ×2 (12:39→20:05)
[2018-06-16] MEDS: CEFEPIME 1,000 MG in SYRINGE 1 EACH IV SCH ×2 (13:51→23:38)
[2018-06-16] MEDS: FERROUS SULFATE 325 MG TABLET PO SCH ×2 (14:03→20:51)
[2018-06-16] MEDS: FORMOTEROL 20 MCG/2 ML NEB RESP TX SCH ×2 (15:30→19:06)
[2018-06-16] MEDS: CARVEDILOL 12.5 MG TABLET PO SCH (20:51)
[2018-06-16] MEDS: ATORVASTATIN 20 MG TABLET PO SCH (20:51)
[2018-06-17] MEDS: FORMOTEROL 20 MCG/2 ML NEB RESP TX SCH ×2 (00:52→07:21)
[2018-06-17] MEDS: ALBUTEROL/IPRATROPIUM 3 ML NEB RESP TX SCH ×2 (00:57→07:21)
[2018-06-17] MEDS: methylPREDNISolone SOD SUC 40 MG/1 ML VIAL IV SCH ×3 (02:05→16:48)
[2018-06-17] MEDS: AZITHROMYCIN 250 MG TABLET PO SCH (08:22)
[2018-06-17] MEDS: ASPIRIN EC 81 MG TABLET PO SCH (08:22)
[2018-06-17] MEDS: LISINOPRIL 5 MG TABLET PO SCH (08:22)
[2018-06-17] MEDS: FERROUS SULFATE 325 MG TABLET PO SCH ×2 (08:22→21:26)
[2018-06-17] MEDS: CARVEDILOL 12.5 MG TABLET PO SCH ×2 (08:22→21:26)
[2018-06-17] MEDS: PANTOPRAZOLE 40 MG TABLET PO SCH (08:22)
[2018-06-17] MEDS: CEFEPIME 1,000 MG in SYRINGE 1 EACH IV SCH ×2 (08:22→21:26)
[2018-06-17] MEDS: BUDESONIDE/FORMOTEROL 160-4.5 INHALER 6 GM INH SCH ×2 (08:23→21:30)
[2018-06-17] MEDS: ENOXAPARIN 40 MG/0.4 ML SYRINGE SUBCUT SCH (08:23)
[2018-06-17 08:50] LABS: Basophils % 0.1 % (0.0-0.8); Hematocrit 42.8 VOL% (42.0-52.0); Hemoglobin 13.7 GM/DL (14.0-18.0); Immature Granulocytes % 0.2 %; Immature Granulocytes Absolute 0.02 #; Lymphocytes # 1.5 10*3/uL (1.4-4.0); Mean Corpuscular Hemoglobin 30 PG (27-34); Monocytes # 0.2 10*3/uL (0.11-0.8); Neutrophils # 6.4 10*3/uL (1.4-7.4); Neutrophils % 79.7 % (38.7-73.9); Platelet Count 162 T/CUMM (130-400); Red Cell Distribution Width 13.2 % (9.3-17.3); White Blood Count 8.1 T/CUMM (4-12)
[2018-06-17 09:23] LABS: Calcium 8.6 MG/DL (8.5-10.1); Osmolality,Calculated 279.1 MOS/KG (273-304); Potassium 4.8 MMOL/L (3.5-5.1); Risk Ratio 2.96; Thyroid Stimulating Hormone 0.53 uIU/ml (0.358-3.74); VLDL CHOLESTEROL 22.8 MG/DL
[2018-06-17] MEDS: VANCOMYCIN INJ 750 MG in SODIUM CHLORIDE 0.9% 250 ML IV SCH (10:14)
[2018-06-17] MEDS: IPRATROPIUM 500 MCG/2.5 ML NEB RESP TX SCH ×2 (13:46→18:52)
[2018-06-17] MEDS: ATORVASTATIN 20 MG TABLET PO SCH (21:26)
[2018-06-18] MEDS: IPRATROPIUM 500 MCG/2.5 ML NEB RESP TX SCH ×4 (00:28→19:02)
[2018-06-18] MEDS: methylPREDNISolone SOD SUC 40 MG/1 ML VIAL IV SCH ×2 (01:02→08:56)
[2018-06-18 04:53] LABS: Hematocrit 35.6 VOL% (42.0-52.0); Hemoglobin 11.2 GM/DL (14.0-18.0); Immature Granulocytes % 0.4 %; Immature Granulocytes Absolute 0.04 #; Lymphocytes # 1.2 10*3/uL (1.4-4.0); Lymphocytes % 11.2 % (21.2-54.2); Mean Corpuscular HGB Conc 31.5 GM/DL (32-36); Mean Corpuscular Hemoglobin 30 PG (27-34); Mean Corpuscular Volume 93.9 FL (87-102); Mean Platelet Volume 10.6 FL (9.6-12.0); Monocytes # 0.3 10*3/uL (0.11-0.8); Monocytes % 3.2 % (1.7-12.7); Neutrophils # 8.8 10*3/uL (1.4-7.4); Neutrophils % 85.2 % (38.7-73.9); Platelet Count 158 T/CUMM (130-400); Red Blood Count 3.79 MC/CUMM (3.8-5.5); Red Cell Distribution Width 13.2 % (9.3-17.3); White Blood Count 10.4 T/CUMM (4-12)
[2018-06-18] MEDS: VANCOMYCIN INJ 750 MG in SODIUM CHLORIDE 0.9% 250 ML IV SCH ×2 (04:57→22:25)
[2018-06-18 05:22] LABS: Calcium 8.2 MG/DL (8.5-10.1); Osmolality,Calculated 286.5 MOS/KG (273-304); Potassium 4.8 MMOL/L (3.5-5.1)
[2018-06-18 05:24] LABS: Anisocytosis 1+; Platelet Estimate Normal
[2018-06-18] MEDS: ENOXAPARIN 40 MG/0.4 ML SYRINGE SUBCUT SCH (08:54)
[2018-06-18] MEDS: ASPIRIN EC 81 MG TABLET PO SCH (08:54)
[2018-06-18] MEDS: BUDESONIDE/FORMOTEROL 160-4.5 INHALER 6 GM INH SCH ×2 (08:54→21:30)
[2018-06-18] MEDS: PANTOPRAZOLE 40 MG TABLET PO SCH (08:54)
[2018-06-18] MEDS: CARVEDILOL 12.5 MG TABLET PO SCH ×2 (08:54→21:28)
[2018-06-18] MEDS: FERROUS SULFATE 325 MG TABLET PO SCH ×2 (08:55→21:28)
[2018-06-18] MEDS: AZITHROMYCIN 250 MG TABLET PO SCH (08:55)
[2018-06-18] MEDS: LISINOPRIL 5 MG TABLET PO SCH (08:56)
[2018-06-18] MEDS: CEFEPIME 1,000 MG in SYRINGE 1 EACH IV SCH ×2 (08:56→21:28)
[2018-06-18] MEDS ORDERED: FLUCONAZOLE 200 MG TABLET PO ONE (09:57)
[2018-06-18] MEDS: methylPREDNISolone SOD SUC 40 MG/1 ML VIAL IM SCH ×2 (12:21→21:29)
[2018-06-18] MEDS: NYSTATIN 500,000 UNIT/5 ML UDCUP SWISH/SWAL SCH ×3 (13:03→21:28)
[2018-06-18] MEDS: guaiFENesin/DM ER 600-30 MG TABLET PO PRN (15:14)
[2018-06-18] MEDS: ATORVASTATIN 20 MG TABLET PO SCH (21:28)
[2018-06-19] MEDS: IPRATROPIUM 500 MCG/2.5 ML NEB RESP TX SCH ×2 (00:36→07:00)
[2018-06-19 05:42] LABS: Hematocrit 36.1 VOL% (42.0-52.0); Hemoglobin 11.5 GM/DL (14.0-18.0)
[2018-06-19 05:56] LABS: Calcium 7.8 MG/DL (8.5-10.1); Osmolality,Calculated 286.4 MOS/KG (273-304); Potassium 4.7 MMOL/L (3.5-5.1)
[2018-06-19] MEDS: ASPIRIN EC 81 MG TABLET PO SCH (08:35)
[2018-06-19] MEDS: CARVEDILOL 12.5 MG TABLET PO SCH ×2 (08:36→21:29)
[2018-06-19] MEDS: AZITHROMYCIN 250 MG TABLET PO SCH (08:36)
[2018-06-19] MEDS: FLUCONAZOLE 200 MG TABLET PO SCH (08:36)
[2018-06-19] MEDS: ENOXAPARIN 40 MG/0.4 ML SYRINGE SUBCUT SCH (08:36)
[2018-06-19] MEDS: PANTOPRAZOLE 40 MG TABLET PO SCH (08:36)
[2018-06-19] MEDS: LISINOPRIL 5 MG TABLET PO SCH (08:36)
[2018-06-19] MEDS: FERROUS SULFATE 325 MG TABLET PO SCH ×2 (08:36→21:29)
[2018-06-19] MEDS: NYSTATIN 500,000 UNIT/5 ML UDCUP SWISH/SWAL SCH ×4 (08:37→21:29)
[2018-06-19] MEDS: BUDESONIDE/FORMOTEROL 160-4.5 INHALER 6 GM INH SCH ×2 (08:38→21:32)
[2018-06-19] MEDS: ACETAMINOPHEN 325 MG TABLET PO PRN (08:41)
[2018-06-19] MEDS: CEFEPIME 1,000 MG in SYRINGE 1 EACH IV SCH ×2 (08:44→21:29)
[2018-06-19] MEDS ORDERED: methylPREDNISolone SOD SUC 40 MG/1 ML VIAL IV SCH (09:00)
[2018-06-19] MEDS: VANCOMYCIN INJ 750 MG in SODIUM CHLORIDE 0.9% 250 ML IV SCH ×2 (10:06→21:59)
[2018-06-19] MEDS ORDERED: ALBUTEROL 2.5 MG/3 ML NEB RESP TX PRN (11:28)
[2018-06-19] MEDS ORDERED: ATORVASTATIN 40 MG TABLET PO SCH (11:33)
[2018-06-19] MEDS: LACTOBACILLUS RHAMNOSUS GG CAPSULE PO SCH ×2 (12:14→21:29)
[2018-06-19] MEDS: ALBUTEROL/IPRATROPIUM 3 ML NEB RESP TX SCH ×2 (12:52→20:05)
[2018-06-19] MEDS: guaiFENesin/DM ER 600-30 MG TABLET PO PRN (15:57)
[2018-06-20] MEDS: ALBUTEROL/IPRATROPIUM 3 ML NEB RESP TX SCH ×2 (01:11→07:12)
[2018-06-20] MEDS ORDERED: predniSONE 20 MG TABLET PO SCH (09:00)
[2018-06-20] MEDS ORDERED: methylPREDNISolone SOD SUC 40 MG/1 ML VIAL IV SCH (09:00)
[2018-06-20] MEDS: AZITHROMYCIN 250 MG TABLET PO SCH (09:28)
[2018-06-20] MEDS: LACTOBACILLUS RHAMNOSUS GG CAPSULE PO SCH (09:30)
[2018-06-20] MEDS: ASPIRIN EC 81 MG TABLET PO SCH (09:31)
[2018-06-20] MEDS: CARVEDILOL 12.5 MG TABLET PO SCH (09:31)
[2018-06-20] MEDS: ACETAMINOPHEN 325 MG TABLET PO PRN (09:32)
[2018-06-20] MEDS: FERROUS SULFATE 325 MG TABLET PO SCH (09:33)
[2018-06-20] MEDS: PANTOPRAZOLE 40 MG TABLET PO SCH (09:33)
[2018-06-20] MEDS: LISINOPRIL 5 MG TABLET PO SCH (09:34)
[2018-06-20] MEDS: FLUCONAZOLE 200 MG TABLET PO SCH (09:34)
[2018-06-20] MEDS: CEFEPIME 1,000 MG in SYRINGE 1 EACH IV SCH (09:38)
[2018-06-20] MEDS: ENOXAPARIN 40 MG/0.4 ML SYRINGE SUBCUT SCH (09:45)
[2018-06-20] MEDS: VANCOMYCIN INJ 750 MG in SODIUM CHLORIDE 0.9% 250 ML IV SCH (09:47)
[2018-06-20] MEDS: BUDESONIDE/FORMOTEROL 160-4.5 INHALER 6 GM INH SCH (09:49)
[2018-06-20] MEDS: NYSTATIN 500,000 UNIT/5 ML UDCUP SWISH/SWAL SCH (10:48)
[2018-06-20 12:01] VITALS: BP 172/70
== END 2018-06-20 14:00 | disposition home or self-care (01) | DRG 191 ==
LOC: N.ED 07:14 → N.EDINP 08:57 → SUATTDRO 08:57 → N.2E 09:41 → UNDODISIN 14:19
PROVIDERS: ADMIT Internal Medicine Infectious Disease; ATTEND Internal Medicine

== ENCOUNTER 2019-06-27 10:06 | Inpatient (IN) ==
[2019-06-27] MEDS ORDERED: ALBUTEROL/IPRATROPIUM 3 ML NEB RESP TX STA ×2 (11:16→13:25)
[2019-06-27 11:45] LABS: Basophils % 0.2 % (0.0-0.8); Eosinophils # 0.6 10*3/uL (0.0-0.87); Eosinophils % 10.2 % (0.00-10.9); Hematocrit 41.1 VOL% (42.0-52.0); Hemoglobin 13.6 GM/DL (14.0-18.0); Immature Granulocytes % 0.2 %; Immature Granulocytes Absolute 0.01 #; Lymphocytes # 1.9 10*3/uL (1.4-4.0); Lymphocytes % 31.4 % (21.2-54.2); Mean Corpuscular HGB Conc 33.1 GM/DL (32-36); Mean Corpuscular Volume 92.6 FL (87-102); Mean Platelet Volume 10.4 FL (9.6-12.0); Monocytes % 8.5 % (1.7-12.7); Neutrophils % 49.5 % (38.7-73.9); Platelet Count 180 T/CUMM (130-400); Red Blood Count 4.44 MC/CUMM (3.8-5.5); Red Cell Distribution Width 13.1 % (9.3-17.3); White Blood Count 6.1 T/CUMM (4-12)
[2019-06-27 12:12] LABS: Albumin 3.2 G/DL (3.4-5.0); Bilirubin,Total 1.1 MG/DL (0.2-1.0); Calcium 8.8 MG/DL (8.5-10.1); Osmolality,Calculated 277.5 MOS/KG (273-304); Total Protein 7.4 G/DL (6.4-8.3)
[2019-06-27] MEDS ORDERED: FUROSEMIDE 20 MG/2 ML VIAL IV STA (12:33)
[2019-06-27] MEDS ORDERED: FUROSEMIDE 40 MG/4 ML VIAL ONE (12:38)
[2019-06-27] MEDS ORDERED: AZITHROMYCIN INJ 500 MG in SODIUM CHLORIDE 0.9% 250 ML IV STA (13:25)
[2019-06-27] MEDS ORDERED: cefTRIAXone 1,000 MG in SODIUM CHLORIDE 0.9% 100 ML IV STA (13:25)
[2019-06-27] MEDS ORDERED: methylPREDNISolone SOD SUC 125 MG/2 ML VIAL IV STA (13:25)
[2019-06-27] MEDS ORDERED: cefTRIAXone 1,000 MG VIAL ONE (13:31)
[2019-06-27] MEDS ORDERED: methylPREDNISolone SOD SUC 125 MG/2 ML VIAL ONE (13:32)
[2019-06-27 13:54] LABS: ABG Base Excess 0.8 MMOL/L (-2.5-2.5); ABG HCO3 24.8 MMOL/L (20-26); ABG Oxygen Saturation 82.9 % (95-100); ABG PCO2 37.1 MM HG (35-48); ABG PH 7.433 (7.35-7.45); ABG TCO2 21.4 MMOL/L (23-27)
[2019-06-27] MEDS ORDERED: ALBUTEROL 2.5 MG/3 ML NEB RESP TX PRN (14:51)
[2019-06-27] MEDS ORDERED: diphenhydrAMINE CAP 25 MG CAPSULE PO PRN (14:52)
[2019-06-27] MEDS ORDERED: ZALEPLON 5 MG CAPSULE PO PRN (14:52)
[2019-06-27] MEDS ORDERED: PROMETHAZINE 25 MG TABLET PO PRN (14:52)
[2019-06-27] MEDS ORDERED: ONDANSETRON 4 MG/2 ML VIAL IV PRN (14:52)
[2019-06-27] MEDS ORDERED: hydrALAZINE 20 MG/1 ML VIAL IV PRN (14:55)
[2019-06-27] MEDS ORDERED: AZITHROMYCIN INJ 500 MG in SODIUM CHLORIDE 0.9% 250 ML IV SCH (15:00)
[2019-06-27] MEDS ORDERED: cefTRIAXone 1,000 MG in SYRINGE 1 EACH IV SCH (16:00)
[2019-06-27] MEDS: LISINOPRIL 10 MG TABLET PO SCH (17:55)
[2019-06-27] MEDS: carvediloL 12.5 MG TABLET PO SCH ×2 (17:56→21:21)
[2019-06-27] MEDS: FUROSEMIDE 40 MG/4 ML VIAL IV SCH (18:01)
[2019-06-27] MEDS: ENOXAPARIN 40 MG/0.4 ML SYRINGE SUBCUT SCH (18:01)
[2019-06-27] MEDS: BUDESONIDE 0.5 MG/2 ML NEB RESP TX SCH (18:45)
[2019-06-27] MEDS: methylPREDNISolone SOD SUC 40 MG/1 ML VIAL IV SCH (21:21)
[2019-06-27] MEDS: ATORVASTATIN 40 MG TABLET PO SCH (21:21)
[2019-06-28 06:34] LABS: Basophils % 0.2 % (0.0-0.8); Hematocrit 42.1 VOL% (42.0-52.0); Hemoglobin 13.5 GM/DL (14.0-18.0); Immature Granulocytes % 0.2 %; Immature Granulocytes Absolute 0.01 #; Lymphocytes # 1.2 10*3/uL (1.4-4.0); Mean Corpuscular HGB Conc 32.1 GM/DL (32-36); Mean Corpuscular Volume 93.3 FL (87-102); Mean Platelet Volume 10.5 FL (9.6-12.0); Monocytes % 1.4 % (1.7-12.7); Neutrophils % 74.2 % (38.7-73.9); Platelet Count 190 T/CUMM (130-400); Red Blood Count 4.51 MC/CUMM (3.8-5.5); Red Cell Distribution Width 13.2 % (9.3-17.3); White Blood Count 4.9 T/CUMM (4-12)
[2019-06-28 06:58] LABS: Calcium 8.3 MG/DL (8.5-10.1); Osmolality,Calculated 288.3 MOS/KG (273-304)
[2019-06-28] MEDS: methylPREDNISolone SOD SUC 40 MG/1 ML VIAL IV SCH ×3 (07:06→21:32)
[2019-06-28] MEDS: BUDESONIDE 0.5 MG/2 ML NEB RESP TX SCH ×2 (07:38→20:04)
[2019-06-28] MEDS: FUROSEMIDE 40 MG/4 ML VIAL IV SCH ×2 (09:23→16:18)
[2019-06-28] MEDS: carvediloL 12.5 MG TABLET PO SCH ×2 (09:23→21:32)
[2019-06-28] MEDS: DOCUSATE SODIUM 100 MG CAPSULE PO PRN (09:23)
[2019-06-28] MEDS: PANTOPRAZOLE 40 MG TABLET PO SCH (09:23)
[2019-06-28] MEDS: LISINOPRIL 10 MG TABLET PO SCH (09:23)
[2019-06-28] MEDS: ASPIRIN EC 325 MG TABLET PO SCH (09:23)
[2019-06-28] MEDS ORDERED: AZITHROMYCIN INJ 500 MG in SODIUM CHLORIDE 0.9% 250 ML IV SCH (14:00)
[2019-06-28] MEDS: ALBUTEROL/IPRATROPIUM 3 ML NEB RESP TX PRN (14:47)
[2019-06-28] MEDS: cefTRIAXone 1,000 MG in SYRINGE 1 EACH IV SCH (15:11)
[2019-06-28] MEDS: guaiFENesin/DM ER 600-30 MG TABLET PO PRN (15:26)
[2019-06-28] MEDS: ENOXAPARIN 40 MG/0.4 ML SYRINGE SUBCUT SCH (16:18)
[2019-06-28] MEDS: ATORVASTATIN 40 MG TABLET PO SCH (21:32)
[2019-06-29] MEDS: ALBUTEROL/IPRATROPIUM 3 ML NEB RESP TX PRN (01:45)
[2019-06-29] MEDS: methylPREDNISolone SOD SUC 40 MG/1 ML VIAL IV SCH ×3 (06:27→22:51)
[2019-06-29] MEDS: BUDESONIDE 0.5 MG/2 ML NEB RESP TX SCH ×2 (08:26→19:45)
[2019-06-29] MEDS: FUROSEMIDE 40 MG/4 ML VIAL IV SCH ×2 (09:29→16:39)
[2019-06-29] MEDS: LISINOPRIL 10 MG TABLET PO SCH (09:29)
[2019-06-29] MEDS: carvediloL 12.5 MG TABLET PO SCH ×2 (09:29→22:51)
[2019-06-29] MEDS: DOCUSATE SODIUM 100 MG CAPSULE PO PRN (09:29)
[2019-06-29] MEDS: ASPIRIN EC 325 MG TABLET PO SCH (09:29)
[2019-06-29] MEDS: PANTOPRAZOLE 40 MG TABLET PO SCH (09:29)
[2019-06-29] MEDS: BENZONATATE 100 MG CAPSULE PO SCH ×2 (09:31→22:51)
[2019-06-29] MEDS: AZITHROMYCIN 250 MG TABLET PO SCH (11:49)
[2019-06-29] MEDS: guaiFENesin/DM ER 600-30 MG TABLET PO PRN (11:49)
[2019-06-29] MEDS: ACETYLCYSTEINE 20% 800 MG/4 ML VIAL RESP TX SCH ×2 (13:27→19:45)
[2019-06-29] MEDS: ALBUTEROL/IPRATROPIUM 3 ML NEB RESP TX SCH ×2 (13:27→19:45)
[2019-06-29] MEDS: cefTRIAXone 1,000 MG in SYRINGE 1 EACH IV SCH (14:37)
[2019-06-29] MEDS: ENOXAPARIN 40 MG/0.4 ML SYRINGE SUBCUT SCH (16:39)
[2019-06-29] MEDS: ATORVASTATIN 40 MG TABLET PO SCH (22:51)
[2019-06-30] MEDS: ALBUTEROL/IPRATROPIUM 3 ML NEB RESP TX SCH ×4 (01:00→19:43)
[2019-06-30] MEDS: ACETYLCYSTEINE 20% 800 MG/4 ML VIAL RESP TX SCH ×3 (01:00→12:11)
[2019-06-30] MEDS: BUDESONIDE 0.5 MG/2 ML NEB RESP TX SCH ×2 (07:38→19:43)
[2019-06-30] MEDS: methylPREDNISolone SOD SUC 40 MG/1 ML VIAL IV SCH ×3 (07:44→21:00)
[2019-06-30] MEDS: carvediloL 12.5 MG TABLET PO SCH ×2 (08:32→20:59)
[2019-06-30] MEDS: BENZONATATE 100 MG CAPSULE PO SCH ×2 (08:32→20:56)
[2019-06-30] MEDS: LISINOPRIL 10 MG TABLET PO SCH (08:32)
[2019-06-30] MEDS: ASPIRIN EC 325 MG TABLET PO SCH (08:32)
[2019-06-30] MEDS: AZITHROMYCIN 250 MG TABLET PO SCH (08:33)
[2019-06-30] MEDS: PANTOPRAZOLE 40 MG TABLET PO SCH (08:33)
[2019-06-30] MEDS: FUROSEMIDE 40 MG/4 ML VIAL IV SCH ×2 (08:33→15:18)
[2019-06-30] MEDS: cefTRIAXone 1,000 MG in SYRINGE 1 EACH IV SCH (13:56)
[2019-06-30] MEDS: ENOXAPARIN 40 MG/0.4 ML SYRINGE SUBCUT SCH (15:19)
[2019-06-30] MEDS: ACETAMINOPHEN 325 MG TABLET PO PRN (17:53)
[2019-06-30] MEDS: ATORVASTATIN 40 MG TABLET PO SCH (20:55)
[2019-06-30] MEDS: guaiFENesin/DM ER 600-30 MG TABLET PO PRN (20:55)
[2019-07-01] MEDS: ALBUTEROL/IPRATROPIUM 3 ML NEB RESP TX SCH ×4 (00:18→20:49)
[2019-07-01] MEDS: ACETYLCYSTEINE 20% 800 MG/4 ML VIAL RESP TX SCH ×3 (00:18→16:57)
[2019-07-01] MEDS: methylPREDNISolone SOD SUC 40 MG/1 ML VIAL IV SCH (05:44)
[2019-07-01 06:03] LABS: Basophils % 0.1 % (0.0-0.8); Hematocrit 41.3 VOL% (42.0-52.0); Hemoglobin 13.2 GM/DL (14.0-18.0); Immature Granulocytes % 0.6 %; Lymphocytes % 8.5 % (21.2-54.2); Mean Corpuscular Volume 94.3 FL (87-102); Mean Platelet Volume 10.7 FL (9.6-12.0); Monocytes % 1.6 % (1.7-12.7); Neutrophils % 89.2 % (38.7-73.9); Platelet Count 189 T/CUMM (130-400); Red Blood Count 4.38 MC/CUMM (3.8-5.5); Red Cell Distribution Width 13.2 % (9.3-17.3); White Blood Count 11.6 T/CUMM (4-12)
[2019-07-01 06:04] LABS: Immature Granulocytes Absolute 0.07 #
[2019-07-01 06:27] LABS: Calcium 7.4 MG/DL (8.5-10.1); Osmolality,Calculated 297.4 MOS/KG (273-304)
[2019-07-01] MEDS ORDERED: methylPREDNISolone SOD SUC 40 MG/1 ML VIAL IV ONE (07:05)
[2019-07-01] MEDS: BUDESONIDE 0.5 MG/2 ML NEB RESP TX SCH ×2 (07:49→20:49)
[2019-07-01] MEDS: ASPIRIN EC 325 MG TABLET PO SCH (08:22)
[2019-07-01] MEDS: LISINOPRIL 10 MG TABLET PO SCH (08:22)
[2019-07-01] MEDS: BENZONATATE 100 MG CAPSULE PO SCH ×2 (08:22→20:42)
[2019-07-01] MEDS: ACETAMINOPHEN 325 MG TABLET PO PRN (08:23)
[2019-07-01] MEDS: carvediloL 12.5 MG TABLET PO SCH ×2 (08:23→20:42)
[2019-07-01] MEDS: AZITHROMYCIN 250 MG TABLET PO SCH (08:23)
[2019-07-01] MEDS: PANTOPRAZOLE 40 MG TABLET PO SCH (08:23)
[2019-07-01] MEDS: NITROGLYCERIN SL 0.4 MG TABLET SL PRN ×2 (09:56→10:11)
[2019-07-01 11:13] LABS: Troponin I < 0.015 NG/ML (0.00-0.045)
[2019-07-01] MEDS: cefTRIAXone 1,000 MG in SYRINGE 1 EACH IV SCH (14:23)
[2019-07-01 14:38] LABS: Troponin I < 0.015 NG/ML (0.00-0.045)
[2019-07-01] MEDS ORDERED: SIMETHICONE CHEW 125 MG TABLET PO PRN (16:36)
[2019-07-01] MEDS: ENOXAPARIN 40 MG/0.4 ML SYRINGE SUBCUT SCH (16:46)
[2019-07-01] MEDS: ATORVASTATIN 40 MG TABLET PO SCH (20:42)
[2019-07-01] MEDS: guaiFENesin/DM ER 600-30 MG TABLET PO PRN (20:42)
[2019-07-02] MEDS: ACETYLCYSTEINE 20% 800 MG/4 ML VIAL RESP TX SCH (00:31)
[2019-07-02] MEDS: ALBUTEROL/IPRATROPIUM 3 ML NEB RESP TX SCH ×3 (00:52→14:57)
[2019-07-02] MEDS: BUDESONIDE 0.5 MG/2 ML NEB RESP TX SCH (07:41)
[2019-07-02] MEDS: carvediloL 12.5 MG TABLET PO SCH (08:18)
[2019-07-02] MEDS: LISINOPRIL 10 MG TABLET PO SCH (08:18)
[2019-07-02] MEDS: BENZONATATE 100 MG CAPSULE PO SCH (08:18)
[2019-07-02] MEDS: PANTOPRAZOLE 40 MG TABLET PO SCH (08:18)
[2019-07-02] MEDS: AZITHROMYCIN 250 MG TABLET PO SCH (08:18)
[2019-07-02] MEDS: ASPIRIN EC 325 MG TABLET PO SCH (08:18)
[2019-07-02 08:56] VITALS: BP 147/70
[2019-07-02] MEDS ORDERED: predniSONE 20 MG TABLET PO SCH (09:00)
[2019-07-02] MEDS ORDERED: guaiFENesin/CODEINE 5 ML LIQUID PO ONE (11:08)
[2019-07-02] MEDS: SODIUM CHLORIDE 0.9% 1,000 ML IV SCH ×3 (12:28→15:02)
[2019-07-02] MEDS: cefTRIAXone 1,000 MG in SYRINGE 1 EACH IV SCH (14:12)
[2019-07-02] MEDS: ENOXAPARIN 40 MG/0.4 ML SYRINGE SUBCUT SCH (15:03)
== END 2019-07-02 17:40 | disposition home or self-care (01) | DRG 190 ==
LOC: N.ED 10:06 → SUATTDRO 14:52 → N.EDINP 14:52 → SUPCPDRO 14:52 → N.5E 17:23
PROVIDERS: ADMIT Internal Medicine; ATTEND Internal Medicine